=== PATIENT | female | born 2005 | race African-American/Black ===

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

== ENCOUNTER 2024-09-22 10:23 | Emergency (ER) | payer MEDICAID, SELFPAY ==
[2024-09-22 10:24] VITALS: BP 177/132; PULSE 76; RESP 16; TEMP 36.9; O2SAT 99; BMI 46.5
--- NOTE | 2024-09-22 10:40 | EX.ED.DYSGE1 ---
HPI History of Present Illness Chief Complaint: Cold Sx Detail of Chief Complaint: Cold symptoms Informant: patient Narrative Narrative: Patient presents the emergency department complaint of cold symptoms that started 7 days ago. She initially started with a sore throat and cough and headache and bodyaches. Was seen yesterday at urgent care and had testing for COVID flu and RSV which was negative. She had testing for strep which was negative. She continues to complain of some throat discomfort with swallowing. She is coughing up some thick phlegm at times. She had some intermittent blood-tinged sputum. She denies recent travel or surgery. No history of PE or DVT. Subjective fever at home but is not checked her temperature she does not have a thermometer. [facility] Medical History Depression Anxiety Home Medications ?Medication ?Instructions ?Recorded ?Last Taken ?Type methylphenidate HCl 54 mg 54 mg PO DAILY 02/27/21 Unknown History tablet,extended release 24 hr (Concerta) sertraline 25 mg tablet (Zoloft) 25 mg PO DAILY 02/22/22 12/23/23 History metformin 500 mg tablet 500 mg PO 12/23/23 Unknown History azithromycin 250 mg tablet 250 mg PO DAILY 4 days #4 tabs 09/22/24 Unknown Rx (Zithromax) Allergy/AdvReac Type Severity Reaction Status Date / Time No Known Allergies Allergy Verified 09/22/24 10:24 Family History Father Hypertension Diabetes Myocardial infarction Kidney disease Gout Sleep apnea CHF (congestive heart failure) Surgical History History of placement of ear tubes Social History Smoking Status: Never smoker ROS ROS ED Review of Systems ROS Unobtainable: other Constitutional Constitutional ED: Reports fever(s) and lethargy; Denies chills, sweats or weight loss Eyes Eyes: Denies blurry vision, change in vision or diplopia ENT ENT ED: Reports sore throat; Denies rhinorrhea Cardiovascular Cardiovascular: Denies chest pain, orthopnea or racing heartbeat Respiratory/Chest Respiratory/Chest: Reports cough, dyspnea on exertion, sputum and other Details: Hemoptysis ; Denies dyspnea or orthopnea Gastrointestinal Gastrointestinal: Denies abdominal pain, diarrhea, nausea or vomiting Genitourinary Genitourinary ED: Denies dysuria, hematuria or urinary frequency Musculoskeletal Musculoskeletal: Denies arthralgias, back pain, myalgias or neck pain Integumentary Denies abscess, Abrasions or rash Neurologic Neurologic: Denies headache(s) or weakness Psychiatric Psychiatric: Denies anxiety, depression or suicidal thoughts Endocrine Endocrinology: Denies polydipsia, polyphagia or polyuria Hematologic/Lymphatic Hematologic/Lymphatic: Denies easy bleeding, easy bruising or lymphadenopathy Allergic/Immunologic Allergic/Immunologic ED: Denies mouth swelling, tongue swelling or urticaria EXAM Physical Exam Const Vital Signs: 09/22/24 10:24 09/22/24 10:53 Temperature 98.4 F Temperature Source Oral Pulse Rate 76 Respiratory Rate 16 Respiratory Effort Normal Non-Labored Respiratory Pattern Normal Blood Pressure 177/132 H Blood Pressure Mean 147 Pulse Ox 99 Oxygen Delivery Method Room Air Positive well nourished and well developed General Appearance ED: well developed and NAD HEENT Reports TM's clear and moist mucous membranes HEENT Narrative: No significant pharyngeal erythema. No exudates. Uvula midline without trismus. No stridor on exam. No significant anterior or posterior lymphadenopathy. No significant tenderness over the trachea. No masses palpated. normocephalic and atraumatic; Negative for trauma or tenderness Tympanic Membrane ED: Yes TM's clear Eyes PERRL and EOMs intact bilaterally General Eye ED: Negative for pale conjunctiva or scleral icterus Neck no lymphadenopathy, supple and no JVD General: Negative for tenderness Chest Wall inspection of chest normal and palpation of chest normal Chest: Negative for tenderness Resp normal respiratory effort and clear to auscultation bilaterally Effort and Inspection: Negative for respiratory distress or pain with movement Auscultation: Negative for rhonchi, wheezes or diminished lung sounds Cardio regular rate, regular rhythm, S1 normal heart sound, S2 normal heart sound and no murmurs Peripheral Pulses: pulses 2+ throughout GI normal to inspection, nondistended, normoactive bowel sounds, soft to palpation, non-tender, non-distended and no masses Back/Spine no CVA tenderness and no thoracic nor lumbar tenderness Extremity normal to inspection General Extremety ED: Negative for edema General Extremity: Negative for edema Neuro oriented x3, CN's II-XII intact bilaterally, no sensory deficits noted and gait normal Sensorium / Orientation: awake, alert, oriented to person, oriented to place and oriented to time Motor Exam: strength 5/5 throughout and strength abnormal Psych mental status grossly normal Skin no rashes or lesions noted and no wounds MDM MDM MDM Narrative Medical decision making narrative: Patient presents with cough at times blood-tinged for about 6 days. Patient still bringing up thick yellow phlegm. Subjective fever at times. Negative viral studies for COVID flu and RSV yesterday as well as strep. Two-view chest x-ray obtained interpreted by myself no evidence of infiltrate or pneumothorax or acute disease process. Radiology in agreement. This point discussed results with patient. In the differential still would be viral etiology versus possible bacterial cause and given that she has had symptoms for almost over a week now and still bringing up thick phlegm at times blood-tinged will cover with Zithromax and give first dose in the emergency department. Advised to follow-up with her primary care physician within the next 5 to 7 days. Vies to return if increasing shortness of breath or condition should worsen anyway. Radiography Diagnostic Testing: Clinical Impression(s) from Imaging Studies Chest X-Ray 09/22/24 10:50 IMPRESSION: No acute process detected. Reading [facility] chest x-ray obtained interpreted by myself as no evidence of infiltrate or pneumothorax or acute disease process. Radiology in agreement. Discharge Plan Triage Chief Complaint: Cold Sx ED Provider: Abdoul Mulligan Dx/Rx/DC Orders Clinical Impression: Bronchitis Instructions: ED Upper Resp Infec Abx Tx Prescriptions: New azithromycin [Zithromax] 250 mg tablet 250 mg PO DAILY 4 Days Qty: 4 0RF No Action methylphenidate HCl [Concerta] 54 mg Tablet Extended Release 24hr 54 mg PO DAILY sertraline [Zoloft] 25 mg Tablet 25 mg PO DAILY metformin 500 mg tablet 500 mg PO Primary Care Provider: Fanny Alonzo Referrals: Isrrael Knight MD [Non-Staff] - Activity Restrictions/Additional Instructions: Follow-up with your primary care physician within expected 7 days Print Language: Urdu Disposition Disposition: Home, Self Care
--- NOTE | 2024-09-22 10:50 | RAD_ITS ---
PROCEDURE: CHEST PA AND LATERAL 09/22/2024 REASON FOR EXAM: COUGH TECHNIQUE: Frontal and lateral views of the chest. COMPARISON: Chest radiograph 02/22/2022 FINDINGS: Hardware: None Heart: Normal size Mediastinum: Normal contours Lungs: Clear and expanded Bones: Unremarkable RAD/Chest PA and Lateral IMPRESSION: No acute process detected. Reading [facility]
--- OUTSIDE RECORDS SUMMARY | 2024-09-22 11:16 | XMS RPT_ITS | CCD ---
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 reach by phone- [employer] message sent William Chowdary MA Allergies As of Date: 11/21/2023 Noted Allergy Reaction CAT DANDER 07/01/2021 7 - Swelling 9 - Itching Date Reviewed: 11/20/2023 Reviewed by: William Chowdary MA - Fully Assessed Reason for Visit: Results [95] Prescriptions as of 11/21/2023 - metFORMIN (GLUCOPHAGE) 500 mg tablet Take 1 tablet by mouth daily with breakfast. - sertraline (ZOLOFT) 100 mg tablet Take 1 tablet by mouth once daily. - SUMAtriptan (IMITREX) 100 mg tablet Take 100 mg by mouth as needed. Meds Comments as of 08/18/2010: All medications have been reviewed today. Linda Fuentes Bety Problem List As Of Date 11/21/2023 Noted Resolved Attention deficit hyperactivity disorder (ADHD)*03/24/2011 06/10/2019 Adjustment disorder with mixed anxiety and depr*09/25/2017 09/19/2022 Body mass index equal to or greater than 95th p*09/14/2018 Class 3 severe obesity with body mass index (BM*10/04/2022 Encounter Status:Closed by WILLIAM CHOWDARY CMA on 11/21/23 Normal [facility] C. trachomatis+N. gonorrhoea e DNA TARUN+probe Ql (Unsp spec)on 11-20-2023 C. trachomatis rRNA TARUN+probe Ql (Unsp spec) Negative Normal Negative for Chlamydia trachomatis by amplificaton [facility] Comment on above: Order Comment: Speci men Type: URINE SPECIMEN Ordering Facility: [facility] Address: [address] [place] [address] Performed By: #### 3 [id number] #### [facility] CLIA [id number] [address] [place] [address] [place] N. gonorrhoeae rRNA TARUN+probe Ql (Unsp spec) Negative Normal Negative for Neisseria gonorrhoeae by amplification [facility] Comment on above: Order Comment: Speci men Type: URINE SPECIMEN Ordering Facility: [facility] Address: [address] [place] [address] Performed By: #### 3 [id number] #### [facility] CLIA [id number] [address] [place] [address] [place] CNOVon 11-20-2023 CNOV Office Visit (FAMPWS ) TARI URIBE ([id number]) 3 F Date Time Provider Department 11/20/23 12:00 PM JOSE ALONZO During your visit today, we recorded the following information about you: Pulse Respiration Blood pressure Weight 57/minute 14/minute 125/70 161 kg Jose Alonzo APRN.CNP 11/20/2023 12:08 PM Signed Chief Complaint Patient presents with: Follow Up HPI Tari Uribe is a 18 year old female who presents here today for Above Complaints.. Patient presents for letter for an emotional support animal. Past medical history, appointments, medications, allergies reviewed. Previous Medical History PAST MEDICAL HISTORY No date: ADHD (attention deficit hyperactivity disorder) Comment: [facility]--Dr. Oakley 09/25/2017: Adjustment disorder with mixed anxiety and depressed mood No date: Arm fracture, left Comment: kindergarten No date: Depression Comment: and anxiety No date: PMH - PAST MEDICAL HISTORY OF Comment: recurrent ear infections Previous Surgical History PAST SURGICAL HISTORY 04/03/2006: TYMPANOSTOMY LOCAL/TOPICAL ANESTHESIA Comment: dr calvert Family History FAMILY HISTORY Problem Relation Age of Onset Heart Mother murmur Cancer Mother had cancerous polyp at age 10 year Diabetes Maternal Grandmother Heart Maternal Grandmother other (kidney) Maternal Grandmother had one removed Heart Father CHF, Stents x 2 Kidney Disease Father Diabetes Father type 2 Hypertension Father Hyperlipidemia Father other (gout) Father No Known Problems Brother No Known Problems Paternal Grandmother Dementia Paternal Grandfather Alzheimer's Disease Paternal Grandfather Patient Allergies ALLERGIES Allergen Reactions Cat Dander Swelling, Itching Current Medications Current Outpatient Medications on File Prior to Visit Medication Sig dexAMETHasone (DECADRON) 1 mg tablet Take the tablet at 11 pm and go for labs the next morning on fasting- labs to be drawn at 8 am sertraline (ZOLOFT) 100 mg tablet Take 1 tablet by mouth once daily. metFORMIN (GLUCOPHAGE) 500 mg tablet Take 1 tablet by mouth daily with breakfast. SUMAtriptan (IMITREX) 100 mg tablet Take 100 mg by mouth as needed. No current facility-administered medications on file prior to visit. Social History Social History Tobacco Use Smoking status: Never Smokeless tobacco: Never Vaping Use Vaping Use: Never used Substance Use Topics Alcohol use: No Drug use: Yes Types: Marijuana Comment: every other day, smokes and uses edibles Review of Symptoms REVIEW OF SYSTEMS SEE HPI EXAM: BP 125/70 Pulse (!) 57 Resp 14 Wt (!) 161 kg (355 lb) LMP 05/22/2023 (Exact Date) BMI 52.42 kg/m? General Appearance: Well appearing, alert, in no acute distress, well-hydrated, well nourished.. Health Maintenance List GC (Gonorrhea) Screening (18-24) Never done Depression Screening Never done Anxiety Screening Never done Hepatitis C Screening Never done HIV Screening Never done Chlamydia Screening (18-) Never done Covid-19 Vaccine(1 - season) due on 04/12/2024 Influenza Vaccine(1) due on 12/17/2023 DTaP,Tdap,Td Vaccine(7 - Td or Tdap) due on 12/07/2025 Hepatitis B Vaccine Completed HPV Vaccine Completed Meningococcal Conjugate Vaccine Completed Meningococcal B Vaccine: Consider Based On Risk Completed ASSESSMENT/PLAN: 1. Prediabetes - ICD9: 790.29, ICD10: R73.03 - METFORMIN 500 MG TABLET 2. ALIZA (generalized anxiety disorder) - ICD9: 300.02, ICD10: F41.1 - SERTRALINE 100 MG TABLET 3. Screening for STD (sexually transmitted disease) - ICD9: V74.5, ICD10: Z11.3 - GONORRHEA/CHLAMYDIA NAAT Jose Alonzo APRN.[employer] Allergies As of Date: 11/20/2023 Noted Allergy Reaction CAT DANDER 07/01/2021 7 - Swelling 9 - Itching Date Reviewed: 11/20/2023 Reviewed by: William Chowdary MA - Fully Assessed Reason for Visit: Follow Up [171] Visit Diagnoses:Prediabetes [R73.03] ALIZA (generalized anxiety disorder) [F41.1] Screening for STD (sexually transmitted disease) [Z11.3] Order(s):metFORMIN (GLUCOPHAGE) 500 mg tabletTake 1 tablet by mouth daily with breakfast.Disp: 90 tabletRfl: 0 sertraline (ZOLOFT) 100 mg tabletTake 1 tablet by mouth once daily.Disp: 90 tabletRfl: 0 GONORRHEA/CHLAMYDIA NAAT [SQGCCT] Order #: [id number] FUTURE GONORRHEA/CHLAMYDIA NAAT [SQGCCT] Order #: [id number]. #:[id number] Prescriptions as of 11/20/2023 - metFORMIN (GLUCOPHAGE) 500 mg tablet Take 1 tablet by mouth daily with breakfast. - sertraline (ZOLOFT) 100 mg tablet Take 1 tablet by mouth once daily. - SUMAtriptan (IMITREX) 100 mg tablet Take 100 mg by mouth as needed. Meds Comments as of 08/18/2010: All medications have been reviewed today. Linda Fuentes [facility] Problem List As Of Date 11/20/2023 Noted Resolved Attention deficit hyperactivity disorder ( (more content not included)... [facility]2022 Cult,Urine Specimen Description .CLEAN CATCH URINE .VOIDED URINE Culture Mixed david isolated. Further workup and sensitivity testing not routinely indicated and will not be perfomed. Mixed david isolated includes: MIXED GRAM POSITIVE ORGANISMS 10 to 50,000 CFU/ML MIXED GRAM NEGATIVE RODS <10,000 CFU/ML Report Status FINAL 12/25/2022 Normal [facility] Comment on above: Performed By: #### U RC #### [place] [address] Log Rider: Sean Morley MD CBC with Diffon 12-24-2022 Abs. Basophil 0.04 k/uL Normal 0.00-0.20 [facility] Comment on above: Performed By: #### C BCWD, CP, LIP, LACTIC #### [address] [address] Log Rider: Sean Morley MD Abs.Imm.Granulocyte <0.03 Normal 0.00-0.58 [facility] Comment on above: Performed By: #### C BCWD, CP, LIP, LACTIC #### [place] [address] Log Rider: Sean Morley MD Abs.Neutrophil (Seg) 3.31 k/uL Normal 1.80-7.30 [facility] Comment on above: Performed By: #### C BCWD, CP, LIP, LACTIC #### [address] [place] [address] Log Rider: Sean Morley MD Basophils/100 WBC (Bld) 1 % Normal 0.0-2.0 [facility] Comment on above: Performed By: #### C BCWD, CP, LIP, LACTIC #### [address] [address] Log Rider: Sean Morley MD Eosinophils (Bld) [#/Vol] 0.04 10*3/uL Low 0.05-0.50 [facility] Comment on above: Performed By: #### C BCWD, CP, LIP, LACTIC #### [address] [place] [address] Log Rider: Sean Morley MD Eosinophils/100 WBC (Bld) 1 % Normal 0-6 [facility] Comment on above: Performed By: #### C BCWD, CP, LIP, LACTIC #### [address] [place] [address] Log Rider: Sean Morley MD Erythrocyte distribution width (RBC) [Ratio] 12.3 % Normal 11.5-15.0 [facility] Comment on above: Performed By: #### C BCWD, CP, LIP, LACTIC #### [address] [place] [address] Log Rider: Sean Morley MD Hematocrit (Bld) [Volume fraction] 41.7 % Normal 34.0-48.0 [facility] Comment on above: Performed By: #### C BCWD, CP, LIP, LACTIC #### [address] [place] [address] Log Rider: Sean Morley MD Hemoglobin (Bld) [Mass/Vol] 13.4 g/dL Normal 11.5-15.5 [facility] Comment on above: Performed By: #### C BCWD, CP, LIP, LACTIC #### [address] [place] [address] Log Rider: Sean Morley MD Immature granulocytes/100 WBC (Bld) 0 % Normal 0.0-5.0 [facility] Comment on above: Performed By: #### C BCWD, CP, LIP, LACTIC #### [address] [place] [address] Log Rider: Sean Morley MD Lymphocytes (Bld) [#/Vol] 2.89 10*3/uL Normal 1.50-4.00 [facility] Comment on above: Performed By: #### C BCWD, CP, LIP, LACTIC #### [address] [place] [address] Log Rider: Sean Morley MD Lymphocytes/100 WBC (Bld) 43 % High 20.0-42.0 [facility] Comment on above: Performed By: #### C BCWD, CP, LIP, LACTIC #### [address] [place] [address] Log Rider: Sean Morley MD MCH (RBC) [Entitic mass] 28.2 pg Normal 26.0-35.0 [facility] Comment on above: Performed By: #### C BCWD, CP, LIP, LACTIC #### [address] [place] [address] Log Rider: Sean Morley MD MCHC (RBC) [Mass/Vol] 32.1 g/dL Normal 32.0-34.5 [facility] Comment on above: Performed By: #### C BCWD, CP, LIP, LACTIC #### [address] [place] [address] Log Rider: Sean Morley MD MCV (RBC) [Entitic vol] 87.6 fL Normal 80.0-99.9 [facility] Comment on above: Performed By: #### C BCWD, CP, LIP, LACTIC #### [address] [place] [address] Log Rider: Sean Morley MD Monocytes (Bld) [#/Vol] 0.51 10*3/uL Normal 0.10-0.95 [facility] Comment on above: Performed By: #### C BCWD, CP, LIP, LACTIC #### [address] [place] [address] Log Rider: Sean Morley MD Monocytes/100 WBC (Bld) 8 % Normal 2.0-12.0 [facility] Comment on above: Performed By: #### C BCWD, CP, LIP, LACTIC #### [address] [place] [address] Log Rider: Sean Morley MD Neutrophil (Seg) 49 % Normal 43.0-80.0 [facility] Comment on above: Performed By: #### C BCWD, CP, LIP, LACTIC #### [address] [place] [address] Log Rider: Sean Morley MD Platelet mean volume (Bld) [Entitic vol] 9.9 fL Normal 7.0-12.0 [facility] Comment on above: Performed By: #### C BCWD, CP, LIP, LACTIC #### [address] [place] [address] Log Rider: Sean Morley MD Platelets (Bld) [#/Vol] 440 10*3/uL Normal 130-450 [facility] Comment on above: Performed By: #### C BCWD, CP, LIP, LACTIC #### [facility] [address] [place] [address] Log Rider: Sean Morley MD RBC (Bld) [#/Vol] 4.76 10*6/uL Normal 3.50-5.50 [facility] Comment on above: Performed By: #### C BCWD, CP, LIP, LACTIC #### [facility] [address] [place] [address] Log Rider: Sean Morley MD WBC (Bld) [#/Vol] 6.8 10*3/uL Normal 4.5-11.5 [facility] Comment on above: Performed By: #### C BCWD, CP, LIP, LACTIC #### [address] [place] [address] Log Rider: Sean Morley MD CT ABDOMEN PELVIS WO CONTRAS Ton 12-24-2022 CT ABDOMEN PELVIS WO CONTRAST EXAM: CT Abdomen and Pelvis Without Intravenous Contrast EXAM DATE/TIME: 12/24/2022 3:03 pm CLINICAL HISTORY: ORDERING SYSTEM PROVIDED HISTORY: left flank pain TECHNOLOGIST PROVIDED HISTORY: Reason for exam:->left flank pain Additional Contrast?->None Decision Support Exception - unselect if not a suspected or confirmed emergency medical condition->Emergency Medical Condition (MA) What reading provider will be dictating this exam?->CRC TECHNIQUE: Axial computed tomography images of the abdomen and pelvis without intravenous contrast. This CT exam was performed using one or more of the following dose reduction techniques: automated exposure control, adjustment of the mA and/or kV according to patient size, and/or use of iterative reconstruction technique. COMPARISON: No relevant prior studies available. FINDINGS: Lung bases: No acute findings. No mass. No consolidation. ABDOMEN: Liver: No acute findings. Gallbladder and bile ducts: No acute findings. No calcified stones. No ductal dilation. Pancreas: No acute findings. No ductal dilation. Spleen: No acute findings. No splenomegaly. Adrenals: No acute findings. No mass. Kidneys and ureters: No acute findings. No obstructing stones. No hydronephrosis. Stomach and bowel: No acute findings. No obstruction. No mucosal thickening. PELVIS: Appendix: A normal appearing appendix is noted. Bladder: No acute findings. No stones. Reproductive: Unremarkable as visualized. ABDOMEN and PELVIS: Intraperitoneal space: No acute findings. No free air. No significant fluid collection. Bones/joints: No acute fracture. No dislocation. Soft tissues: No acute findings. Vasculature: No acute findings. No abdominal aortic aneurysm. Lymph nodes: No acute findings. No enlarged lymph nodes. IMPRESSION: 1. No evidence of urinary tract calculi or any evidence of obstructive uropathy. 2. Otherwise no acute pathology or definite etiology for the patient's symptoms. Interpreted by: Manfred Rowland MD Signed by: Manfred Rowland MD 12/24/22 Final result Normal [facility] Comment on above: Order Comment: Reaso n for exam:->left flank pain Additional Contrast?->None Decision Support Exception - unselect if not a suspected or confirmed emergency medical condition->Emergency Medical Condition (MA) What reading provider will be dictating this exam?->CRC Comp Metabolic Profon 2022 Albumin [Mass/Vol] 4.5 g/dL Normal 3.5-5.2 [facility] Comment on above: Performed By: #### C BCWD, CP, LIP, LACTIC #### [facility] [address] [place] [address] Log Rider: Sean Morley MD Alkaline Phos 95 U/L Normal 35-104 [facility] Comment on above: Performed By: #### C BCWD, CP, LIP, LACTIC #### [facility] [address] [place] [address] Log Rider: Sean Morley MD ALT [Catalytic activity/Vol] 22 U/L Normal 0-32 [facility] Comment on above: Performed By: #### C BCWD, CP, LIP, LACTIC #### [facility] [address] [place] [address] Log Rider: Sean Morley MD Anion gap [Moles/Vol] 13 mmol/L Normal 7-16 [facility] Comment on above: Performed By: #### C BCWD, CP, LIP, LACTIC #### [address] [place] [address] Log Rider: Sean Morley MD AST [Catalytic activity/Vol] 18 U/L Normal 0-31 [facility] Comment on above: Performed By: #### C BCWD, CP, LIP, LACTIC #### [address] [place] [address] Log Rider: Sean Morley MD Bilirubin [Mass/Vol] 0.3 mg/dL Normal 0.0-1.2 [facility] Comment on above: Performed By: #### C BCWD, CP, LIP, LACTIC #### [address] [place] [address] Log Rider: Sean Morley MD Calcium [Mass/Vol] 9.5 mg/dL Normal 8.6-10.2 [facility] Comment on above: Performed By: #### C BCWD, CP, LIP, LACTIC #### [address] [place] [address] Log Rider: Sean Morley MD Chloride [Moles/Vol] 103 mmol/L Normal 98-107 [facility] Comment on above: Performed By: #### C BCWD, CP, LIP, LACTIC #### [address] [place] [address] Log Rider: Sean Morley MD CO2 [Moles/Vol] 26 mmol/L Normal 22-29 [facility] Comment on above: Performed By: #### C BCWD, CP, LIP, LACTIC #### [place] [address] [place] [address] Log Rider: Sean Morley MD Creatinine [Mass/Vol] 0.8 mg/dL Normal 0.40-1.20 [facility] Comment on above: Performed By: #### C BCWD, CP, LIP, LACTIC #### [address] [place] [address] Log Rider: Sean Morley MD GFR/1.73 sq M.predicted among non-blacks MDRD (S/P/Bld) [Vol rate/Area] mL/min/{1.73_m2} Normal >60 [facility] Comment on above: Result Comment: These results are not intended for use in patients <18 years of age. eGFR results are calculated without a race factor using the 2020 CKD-EPI equation. Careful clinical correlation is recommended, particularly when comparing to results calculated using previous equations. The CKD-EPI equation is less accurate in patients with extremes of muscle mass, extra-renal metabolism of creatine, excessive creatine ingestion, or following therapy that affects renal tubular secretion. Performed By: #### C BCWD, CP, LIP, LACTIC #### [address] [address] Log Rider: Sean Morley MD Glucose [Mass/Vol] 88 mg/dL Normal 55-110 [facility] Comment on above: Performed By: #### C BCWD, CP, LIP, LACTIC #### [address] [place] [address] Log Rider: Sean Morley MD Potassium [Moles/Vol] 4.4 mmol/L Normal 3.5-5.0 [facility] Comment on above: Performed By: #### C BCWD, CP, LIP, LACTIC #### [address] [place] [address] Log Rider: Sean Morley MD Protein [Mass/Vol] 8.1 g/dL Normal 6.4-8.3 [facility] Comment on above: Performed By: #### C BCWD, CP, LIP, LACTIC #### [address] [place] [address] Log Rider: Sean Morley MD Sodium [Moles/Vol] 142 mmol/L Normal 132-146 [facility] Comment on above: Performed By: #### C BCWD, CP, LIP, LACTIC #### [address] [place] [address] Log Rider: Sean Morley MD Urea nitrogen [Mass/Vol] 8 mg/dL Normal 6-20 [facility] Comment on above: Performed By: #### C BCWD, CP, LIP, LACTIC #### [address] [place] [address] Log Rider: Sean Morley MD Lactic Acidon 12-24-2022 Lactate [Moles/Vol] 1.0 mmol/L Normal 0.5-2.2 [facility] Comment on above: Performed By: #### C BCWD, CP, LIP, LACTIC #### [address] [place] [address] Log Rider: Sean Morley MD Lipaseon 12-24-2022 Lipase [Catalytic activity/Vol] 25 U/L Normal 13-60 [facility] Comment on above: Performed By: #### C BCWD, CP, LIP, LACTIC #### [address] [place] [address] Log Rider: Sean Morley MD Urinalysis w/ Microon 2022 Urine RBC's 21 TO 50 Abnormal R02 [facility] Comment on above: Performed By: #### U AMIC #### [address] [place] [address] Log Rider: Sean Morley MD Urine WBC's 10 TO 20 Abnormal R05 [facility] Comment on above: Performed By: #### U AMIC #### [address] [address] Log Rider: Sean Morley MD Bilirubin, SemiQt,Ur Negative Normal NEG [facility] Comment on above: Performed By: #### U AMIC #### [address] [address] Log Rider: Sean Morley MD Blood, Urine MODERATE Abnormal NEG [facility] Comment on above: Performed By: #### U AMIC #### [place] [address] Log Rider: Sean Morley MD Clarity (U) Clear Normal CLEAR [facility] Comment on above: Performed By: #### U AMIC #### [address] [address] Log Rider: Sean Morley MD Color (U) Yellow Normal YEL [facility] Comment on above: Performed By: #### U AMIC #### [address] [place] [address] Log Rider: Sean Morley MD Glucose Ql (U) Negative Normal NEG [facility] Comment on above: Performed By: #### U AMIC #### [address] [address] Log Rider: Sean Morley MD Ketones Ql (U) Negative Normal NEG [facility] Comment on above: Performed By: #### U AMIC #### [place] [address] [address] Log Rider: Sean Morley MD Leukocyte esterase Test strip Ql (U) Negative Normal NEG [facility] Comment on above: Performed By: #### U AMIC #### [address] [address] Log Rider: Sean Morley MD Nitrite,Ur Negative Normal NEG [facility] Comment on above: Performed By: #### U AMIC #### [address] [address] Log Rider: Sean Morley MD PH,Ur 6.5 Normal 5.0-9.0 [facility] Comment on above: Performed By: #### U AMIC #### [place] [address] Log Rider: Sean Morley MD Protein Ql (U) Negative Normal NEG [facility] Comment on above: Performed By: #### U AMIC #### [address] [address] Log Rider: Sean Morley MD Spec. [place],Ur 1.020 Normal 1.005-1.030 [facility] Comment on above: Performed By: #### U AMIC #### [place] [address] Log Rider: Sean Morley MD Urobilinogen,Ur 0.2 EU/dL Normal 0.0-1.0 [facility] Comment on above: Performed By: #### U AMIC #### [address] [address] Log Rider: Sean Morley MD C Peptideon 05-06-2022 C Peptide 5.6 ng/mL High 1.1 - 4.4 [facility] Comment on above: Order Comment: Relea se to patient->Automatic [id number]&Blood Result Comment: Test Performed by: [facility] [address] [place] [address] Log Rider: Baldev Serna M.D. Ph.D.; CLIA# [id number] Performed By: #### T SHR #### [address] [id number] Insulinon 05-05-2022 Insulin 37 uIU/mL High 0-22 [facility] Comment on above: Order Comment: Fasti ng specimen Release to patient->Automatic [id number]&Blood Result Comment: Post 4-12 hour Fast: 0-8 years: 0-17 uIU/mL >8 years: 0- 22 uIU/mL 2-hour Post Meal: 10-33 uIU/mL 2-hour Post Glucose Testin-66 uIU/mL Performed By: #### I NSUL #### [address] [address] Insulin 37 High [facility] Comment on above: Post 4-12 hour Fast: 0-8 years: 0-17 uIU/mL >8 years: 0- 22 uIU/mL 2-hour Post Meal: 10-33 uIU/mL 2-hour Post Glucose Testin-66 uIU/mL Lipid Panelon 05-05-2022 Cholesterol in LDL [Mass/Vol] 98 mg/dL Normal 0-109 [facility] Comment on above: Order Comment: Relea se to patient->Automatic [id number]&Blood Performed By: #### T SHR #### [address] [id number] Non-HDL Cholesterol 116 mg/dL Normal 0-119 [facility] Comment on above: Order Comment: Relea se to patient->Automatic [id number]&Blood Performed By: #### T SHR #### [address] [id number] Cholesterol [Mass/Vol] 153 mg/dL Normal 0-169 [facility] Comment on above: Order Comment: Relea se to patient->Automatic 97192&Blood Result Comment: Acce ptable (mg/dL): <170 Borderline-High (mg/dL): 170-199 High (mg/dL): > or = 200 Reference: Recommendations of the [place] [employer] Pediatric[employer] (Pediatrics, Mar 2011, 128 (Supplement 5) M503-Z432; DOI: 10.1542/peds.2008-2107C). Performed By: #### T SHR #### [address] [address] Cholesterol in HDL [Mass/Vol] 37 mg/dL Normal [facility] Comment on above: Order Comment: Relea se to patient->Automatic 71430&Blood Result Comment: Low (mg/dL): <40 Borderline-Low (mg/dL): 40-45 Acceptable (mg/dL): >45 Performed By: #### T SHR #### [address] [address] Triglyceride [Mass/Vol] 92 mg/dL High 0-89 [facility] Comment on above: Order Comment: Relea se to patient->Automatic 60567&Blood Performed By: #### T SHR #### [address] [address] Cholesterol [Mass/Vol] 153 mg/dL 0 - 169 mg/dL [facility] Comment on above: Acceptable (mg/dL): <170 Borderline-High (mg/dL): 170-199 High (mg/dL): > or = 200 Reference: Recommendations of the [employer] [place] [employer] (Pediatrics, Mar 2011, 128 (Supplement 5) [id number]; DOI: 10.1542/peds.2009-2107C). Cholesterol in HDL [Mass/Vol] 37 mg/dL [facility] Comment on above: Low (mg/dL): <40 Borderline-Low (mg/dL): 40-45 Acceptable (mg/dL): >45 Cholesterol in LDL [Mass/Vol] 98 mg/dL 0 - 109 mg/dL [facility] Non-HDL Cholesterol 116 mg/dL 0 - 119 mg/dL [facility] Triglyceride [Mass/Vol] 92 mg/dL High 0 - 89 mg/dL [facility] No Panel Informationon 05-05 Interpretation and review of laboratory results Abnormal [facility] Fasting specimen Release to patient->Automatic ACH LAB [facility] Progress Noteon 05-05-2022 Employment Program Representative Authentication Interface Message Text Tari Uribe is 17 y.o. female with obesity, anxiety, depression and polyarthralgia with myalgias, who is being seen in consultation at the [facility] Endocrine clinic for evaluation and advice regarding ELEVATED HEMOGLOBIN A1C. This visit was done at the request of Dr. Holly Tolbert (Rheumatology). Her PCP is Dr. Isrrael Woodall. Tari attended the visit today with her mother, who provided history. HPI: She was evaluated at the Rheumatology clinic on 03/17/2022 for migrating polyarthralgia and myalgia. Labs from 03/17/2022 drawn at 10:50 AM showed mildly elevated HbA1c of 6.0%, prompting referral to endocrinology. Blood glucose (80 mg/dL) and TSH (2.54 mIU/L) were normal. -- Rheumatologic evaluation revealed loose knee caps but did not lead to a specific diagnosis. She was recommended to undergo PT, she has to take ibuprofen very frequently. She was in the ED in February 2022 for severe joint pains. She also had boils around her breasts, seen by ID on 03/24/2022, found to have Staph infection, prescribed topical antibiotics which cleared. Father has obesity, diabetes (with poor BG control on 3 different insulins), kidney disease, CHF, CAD (3 stents), gout, fatty liver and HTN. Mother is fearful that Tari may be headed in her father's direction. GROWTH CHART REVIEW: Review of the growth chart shows steep weight gain starting at age 5 years, rising above the 99th percentile by 10 years. Between March 2021 and March 2022, weight increased from 336 to 348 lb. She has always been tall, with height tracking at the 97th percentile. BMI has been above the 99th percentile since age 10 years. PUBERTAL DEVELOPMENT: She had breast development at age 7 years, menarche at 9 years. Menstrual periods are regular, occurs monthly, bleeding lasts 5-7 days, LMP was 3 weeks ago. She is not bothered by acne or hirsutism. DIET: Eating in nurse's room at school. Review by our copier repair technician showed that she consumes large meal portions with carb heavy food choices at all meals and multiple snacks. Mother is interested in following up with our copier repair technician on a monthly basis. PHYSICAL ACTIVITIES: Not in organized sports, but very active in [employer] club, [employer] club, where she is constantly on her feet. PAST MEDICAL HISTORY: History: Tari was born at [place], [place] at term gestation via vaginal delivery. history was uncomplicated (no gestational diabetes or hypertension). Birthweight was 8 lb 4 oz. She had mild jaundice, there was no hypoglycemia or feeding difficulties during the period. Medical Problems: -- Low vitamin D, prescribed vitamin D -- Anxiety, depression Patient Active Problem List Diagnosis Attention deficit disorder with hyperactivity(314.01) Elevated hemoglobin A1c BMI (body mass index), pediatric, > 99% for age Hospitalizations: none Surgeries: none DEVELOPMENTAL HISTORY: Motor, social and speech developmental milestones were all on time. CURRENT MEDICATIONS: -- Vitamin D - 50,000 units once a week for 12 weeks -- Also takes Zoloft and Concerta Outpatient Medications Marked as Taking for the 05/05/22 encounter (Office Visit) with Tee Warner MD Medication Sig Dispense Refill Magnesium Oxide 500 MG TABS Take 1 Tablet (500 mg) by mouth daily sertraline (ZOLOFT) 50 MG tablet Take 1 Tablet (50 mg) by mouth daily methylphenidate 36 MG CR tablet Take 2 Tabs (72 mg) by mouth daily Indications: Attention Deficit Hyperactivity Disorder Earliest Fill Date: 02/15/16 60 Tab 0 ALLERGIES: Patient has no known allergies. REVIEW OF SYSTEMS: Pertinent items are noted in HPI. CONSTITUTIONAL: has low to fair energy SLEEP: gets 6 hours of sleep nightly. No moderate snoring, no observed apnea. EYES: does not use eye glasses, no recent change in vision ENT: normal hearing CARDIOVASCULAR: no exertional chest pain, palpitations RESPIRATORY: no difficulty breathing, wheezing or cough IMMUNOLOGY: Staph skin infection GI: has IBS, has regular bowel movements, mild abdominal pain, no diarrhea, or constipation NEURO: no frequent headaches, never had seizures SKIN: no rash, dry skin, acne, dry/brittle hair or scalp hair loss MUSCULOSKELETAL: as noted in HPI ENDOCRINOLOGIC: no polyuria, nocturia, nocturnal enuresis or excessive thirst PSYCH: has anxiety and depression SOCIAL HISTORY: Tari lives with parents, 7 yo brother and 6 yo sister She is a senior at [employer]. She is active in theater and drama club. FAMILY HISTORY: Mother: height 5'5, weight 264 lb Father: height 6'3, weight 370 lb. Father has obesity, diabetes (with poor BG control on 3 different insulins, HbA1c 10-14%), kidney disease, CHF, CAD (3 stents), gout, fatty liver and HTN. Mother - HTN 6 yo sister has ADHD No family hx of thyroid disease or dyslipidemia PHYSICAL EXAMINATION: Blood pressure 122/70, pulse 72, height 177.2 cm, weight (!) 160 kg. >99 % (more content not included)... Normal [facility] Progress Noteon 03-24-2022 Employment Program Representative Authentication Interface Message Text Tari Uribe is here for new office visit for: New Patient Visit (Holes under breast and and then boils on top, onset from this summer, topicals and orals antibiotics, not helping and not going away, some are healing but scarring, both breasts and continues to be spreading. 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 We were able to discuss staph decolonization today. In addition I talked to her the importance of daily shower, keeping nails short, not sharing items of personal hygiene etc She will try these steps for 3 months and we will meet virtually at the time. No indication for surgical intervention at this time Plan Staph decolonization instructions Script for Clindamycin for a short course of 5 days if prevention fails Follow up in 3 months. History of Present Illness The history is provided by the patient and a parent. Tari is a 16 year old who comes for new patient evaluation. According to her her problems started in November Boil on top of the breast It was like a scab Then she had underneath the left breast, rash around it, hurt a lot Culture obtained and grew actinomyces On medications for it, initially doxycycline which she did not tolerate well and then clindamycin. One more appeared on the other breast with headaches, blurred vision and leg pain She is not having any more headaches Leg pain is gone Blurred vision is better Usually one spot Smaller than a lizeth Some times it leaks No surgery so far Some under arm pits, inner thighs She had the shakes a couple of week ago, not sure if she had documented fevers. 12th grade Journal club and [employer] Works with Dad at [employer] Up to date with shot including Flu No allergies Review of Systems Infectious Disease Review of Systems Recent Lab Results Reviewed culture results from care everywhere Recent Imaging Findings US Duplex Lower Extremity Bilat Vein Result Date: 03/02/2022 CLINICAL HISTORY: migartory b/l leg pain TECHNIQUE: Ultrasound was performed of the deep venous system of both lower extremities using grayscale, color Doppler and spectral Doppler with and without compression. COMPARISON: None. FINDINGS: RIGHT LOWER EXTREMITY Venous catheter: None. Unless otherwise specified, each imaged vessel has a normal perdomo-scale appearance with normal color Doppler flow and normal venous waveforms. In addition, unless otherwise specified, each vessel is easily compressible with normal response to augmentation maneuvers. There are no abnormal collateral vessels. PROXIMAL DEEP VEINS External iliac vein: Patent. Common femoral vein: Patent. Femoral vein: Patent. DISTAL DEEP VEINS Popliteal vein: Patent. Peroneal vein: Patent. Posterior tibial veins: Patent. Gastrocnemius veins: Patent. SUPERFICIAL VEINS Origin of the greater saphenous vein: Patent. OTHER FINDINGS: None. LEFT LOWER EXTREMITY Venous catheter: None. Unless otherwise specified, each imaged vessel has a normal perdomo-scale appearance with normal color Doppler flow and normal venous waveforms. In addition, unless otherwise specified, each vessel is easily compressible with normal response to augmentation maneuvers. There are no abnormal collateral vessels. PROXIMAL DEEP VEINS External iliac vein: Patent. Common femoral vein: Patent. Femoral vein: Patent. DISTAL DEEP VEINS Popliteal vein: Patent. Peroneal vein: Patent. Posterior tibial veins: Patent. Gastrocnemius veins: Patent. SUPERFICIAL VEINS Origin of the greater saphenous vein: Patent. OTHER FINDINGS: None. IMPRESSION: No evidence of deep venous thrombosis in both lower extremities. This report has been created using voice recognition software X-Ray Tib-Fib 2 Views Right Result Date: 03/02/2022 PROCEDURE: TIBIA FIBULA 2 VIEWS RIGHT CLINICAL HISTORY: msk leg pain COMPARISON: None. FINDINGS: There is no visible fracture. 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 IMPRESSION: Normal radiographic examination of the tibia and fibula. This report has been created using voice recognition software X-Ray Tib-Fib 2 Views Left Result Date: 03/02/2022 PROCEDURE: TIBIA FIBULA 2 VIEWS LEFT CLINICAL HISTORY: msk leg pain COMPARISON: None. FINDINGS: There is no visible fracture or other osseous abnormality. The soft tissues are radiographically normal. IMPRESSION: Normal radiographic examination of the tibia and fibula. This report has been created using voice recognition software Physical Examination Vitals: BP 134/73 Pulse 104 Temp 36.7 C (98.1 F) (Temporal) Resp 20 Ht 177.2 cm Wt (!) 158 kg LMP 02/28/2022 BMI 50.34 kg/m Physical Exam General: Patient appears healthy, well developed, well nourished Head: atraumat (more content not included)... Normal [facility] Aldolaseon 03-18-2022 Aldolase 6.0 U/L Normal 1.0-6.0 [facility] Comment on above: Order Comment: Rhona cole to patient->Automatic 85180&Blood Performed By: #### L D #### [address] [address] Complement, Totalon 03-18-20 22 Complement, Total 66 U/mL Normal 30-75 [facility] Comment on above: Order Comment: Whita se to patient->Automatic 28665&Blood Result Comment: Test Performed by: [facility] [address] [place] [address] Log Rider: Baldev Serna M.D. Ph.D.; CLIA# [id number] Performed By: #### L D #### [address] [address] Lyme Disease Serologyon Lyme Disease Serology Negative Normal Negative [facility] Comment on above: Order Comment: Relea se to patient->Automatic 86003&Blood Result Comment: No e vidence of antibodies to B. burgdorferi detected. False negative results may occur in recently infected patients (<=2 weeks) due to low or undetectable antibody levels to B. burgdorferi. If recent exposure is suspected, a second sample should be collected and tested in 2-4 weeks. Test Performed by: [facility] [address] [id number] Log Rider: Baldev Serna M.D. Ph.D.; CLIA# [id number] Performed By: #### L YMSR #### [address] [address] C-Reactive Proteinon 022 C-Reactive Protein 0.8 mg/dL Normal 0.0-1.0 [facility] Comment on above: Order Comment: Relea se to patient->Automatic 58618&Blood Result Comment: CRP determinations in neonates should be interpreted with caution. CRP may be elevated in circumstances not associated with inflammation (e.g. difficult delivery, pneumothorax). In premature neonates CRP levels may not rise to abnormal levels even if sepsis is present; some speculate that immature liver function decreases the ability to generate a CRP response. Performed By: #### C RP #### [address] [address] C3, Complementon 03-17-2022 C3, Complement 208 mg/dL High 77-143 [facility] Comment on above: Order Comment: Relea se to patient->Automatic 43566&Blood Performed By: #### C 3 #### [address] [address] C4, Complementon 03-17-2022 C4, Complement 37 mg/dL Normal 7-40 [facility] Comment on above: Order Comment: Relea se to patient->Automatic 78949&Blood Performed By: #### T SHR #### [address] [address] Comp Metabolic Panelon 03-17 Albumin [Mass/Vol] 4.3 g/dL Normal 3.2-4.5 [facility] Comment on above: Order Comment: Relea se to patient->Automatic 05164&Blood Performed By: #### L D #### [address] [address] [place] [address] ALP [Catalytic activity/Vol] 72 U/L Normal 43-83 [facility] Comment on above: Order Comment: Relea se to patient->Automatic 09816&Blood Performed By: #### L D #### [address] [address] [place] [address] Bili,Total 0.3 mg/dL Normal 0.0-1.0 [facility] Comment on above: Order Comment: Relea se to patient->Automatic 89880&Blood Performed By: #### L D #### [address] [address] [place] [address] Calcium [Mass/Vol] 9.6 mg/dL Normal 7.6-11.0 [facility] Comment on above: Order Comment: Relea se to patient->Automatic 93775&Blood Performed By: #### L D #### [address] [address] [place] [address] CO2 [Moles/Vol] 25.3 mmol/L Normal 22.0-29.0 [facility] Comment on above: Order Comment: Relea se to patient->Automatic 20040&Blood Performed By: #### L D #### [address] [address] [place] [address] Creatinine [Mass/Vol] 0.71 mg/dL Normal 0.50-1.00 [facility] Comment on above: Order Comment: Relea se to patient->Automatic 32589&Blood Performed By: #### L D #### [address] [address] [place] [address] Glucose [Mass/Vol] 80 mg/dL Normal 70-99 [facility] Comment on above: Order Comment: Relea se to patient->Automatic 19063&Blood Result Comment: Lesley coon for Diagnosis of Diabetes: Fasting Specimen (no caloric intake for at least 8 hours): <100 mg/dL Normal 100-125 mg/dL Increased risk for Diabetes >125 mg/dL Diagnostic for Diabetes Random Glucose (any time of day without regard to last meal): > or = 200 mg/dL plus Classic Symptoms of Diabetes Performed By: #### L D #### [address] [address] Protein [Mass/Vol] 7.2 g/dL Normal 6.0-8.0 [facility] Comment on above: Order Comment: Relea se to patient->Automatic 64381&Blood Performed By: #### L D #### [address] [address] Urea nitrogen [Mass/Vol] 15 mg/dL Normal 4-19 [facility] Comment on above: Order Comment: Relea se to patient->Automatic 42816&Blood Performed By: #### L D #### [address] [address] ALT [Catalytic activity/Vol] 20 U/L Normal 0-34 [facility] Comment on above: Order Comment: Relea se to patient->Automatic 30520&Blood Performed By: #### L D #### [address] [address] AST [Catalytic activity/Vol] 18 U/L Normal 0-31 [facility] Comment on above: Order Comment: Relea se to patient->Automatic 53283&Blood Performed By: #### L D #### [address] [address] Chloride [Moles/Vol] 106 mmol/L Normal 96-108 [facility] Comment on above: Order Comment: Relea se to patient->Automatic 68724&Blood Performed By: #### L D #### [address] [address] Potassium [Moles/Vol] 4.3 mmol/L Normal 3.3-5.1 [facility] Comment on above: Order Comment: Relea se to patient->Automatic 64031&Blood Performed By: #### L D #### [address] [address] Sodium [Moles/Vol] 142 mmol/L Normal 133-145 [facility] Comment on above: Order Comment: Relea se to patient->Automatic 90509&Blood Performed By: #### L D #### [address] [address] Complete Blood Counton 03-17 Differential Complete Automated Normal [facility] Comment on above: Order Comment: Relea se to patient->Automatic 79059&Blood Performed By: #### L D #### [address] [address] Basophils/100 WBC (Bld) 0.80 % Normal 0.00-1.00 [facility] Comment on above: Order Comment: Relea se to patient->Automatic 07732&Blood Performed By: #### L D #### [address] [address] Eosinophils/100 WBC (Bld) 0.50 % Normal 0.00-3.00 [facility] Comment on above: Order Comment: Relea se to patient->Automatic 31233&Blood Performed By: #### L D #### [address] [address] Erythrocyte distribution width (RBC) [Ratio] 12.7 % Normal 0.0-14.4 [facility] Comment on above: Order Comment: Relea se to patient->Automatic 08773&Blood Performed By: #### L D #### [address] [address] Hematocrit (Bld) [Volume fraction] 39.1 % Normal 37.0-46.0 [facility] Comment on above: Order Comment: Relea se to patient->Automatic 23380&Blood Performed By: #### L D #### [address] [id number] Hemoglobin (Bld) [Mass/Vol] 12.5 g/dL Normal 12.0-15.0 [facility] Comment on above: Order Comment: Relea se to patient->Automatic 02835&Blood Performed By: #### L D #### [address] [address] Immature granulocytes/100 WBC (Bld) 0.30 % Normal [facility] Comment on above: Order Comment: Relea se to patient->Automatic 17739&Blood Result Comment: Emma ture Granulocyte Percent includes promyelocytes, myelocytes, and metamyelocytes. IG% > 1.0 indicates a left shift is present. With automated differentials, bands are included in the neutrophil count and not in the Immature Granulocyte Percent. Performed By: #### L D #### [address] [address] Lymphocytes/100 WBC (Bld) 39.3 % Normal 25.0-45.0 [facility] Comment on above: Order Comment: Relea se to patient->Automatic 45892&Blood Performed By: #### L D #### [address] [address] MCH (RBC) [Entitic mass] 28.3 pg Normal 25.0-35.0 [facility] Comment on above: Order Comment: Relea se to patient->Automatic 26085&Blood Performed By: #### L D #### [address] [id number] MCHC 32.0 % Normal 31.0-37.0 [facility] Comment on above: Order Comment: Relea se to patient->Automatic 38806&Blood Performed By: #### L D #### [address] [address] MCV (RBC) [Entitic vol] 88.7 fL Normal 78.0-96.0 [facility] Comment on above: Order Comment: Relea se to patient->Automatic 49454&Blood Performed By: #### L D #### [address] [address] Monocytes/100 WBC (Bld) 8.30 % High 3.00-6.00 [facility] Comment on above: Order Comment: Relea se to patient->Automatic 90477&Blood Performed By: #### L D #### [address] [address] Neutrophils (Bld) [#/Vol] 3.8 10*3/uL Normal 1.8-7.5 [facility] Comment on above: Order Comment: Relea se to patient->Automatic 21799&Blood Performed By: #### L D #### [address] [address] Neutrophils/100 WBC (Bld) 50.8 % Normal 34.0-64.0 [facility] Comment on above: Order Comment: Relea se to patient->Automatic 69754&Blood Performed By: #### L D #### [address] [address] Nucleated RBC/100 WBC (Bld) [Ratio] 0.0 % Normal -1.0-0.0 [facility] Comment on above: Order Comment: Relea se to patient->Automatic 46243&Blood Performed By: #### L D #### [address] [address] Platelet mean volume (Bld) [Entitic vol] 10.2 fL Normal [facility] Comment on above: Order Comment: Relea se to patient->Automatic 33511&Blood Result Comment: MPV is platelet range and age dependent Performed By: #### L D #### [address] [address] Platelets (Bld) [#/Vol] 350 10*3/uL Normal 150-450 [facility] Comment on above: Order Comment: Relea se to patient->Automatic 93194&Blood Performed By: #### L D #### [address] [address] RBC 4.41 10E12/L Normal 4.10-4.80 [facility] Comment on above: Order Comment: Relea se to patient->Automatic 32898&Blood Performed By: #### L D #### [address] [address] WBC (Bld) [#/Vol] 7.5 10*3/uL Normal 4.5-13.0 [facility] Comment on above: Order Comment: Relea se to patient->Automatic 66325&Blood Performed By: #### L D #### [address] [address] Creatine kinaseon 03-17-2022 CK [Catalytic activity/Vol] 89 U/L Normal 24-195 [facility] Comment on above: Order Comment: Relea se to patient->Automatic 54810&Blood Performed By: #### F ERTN #### [address] [address] Erythrocyte Sedimentation Ra kendra 03-17-2022 ESR (Bld) [Velocity] 60 mm/h Normal [facility] Comment on above: Order Comment: Relea se to patient->Automatic 71202&Blood Performed By: #### L D #### [address] [id number] ESR Interpretation ----- Normal [facility] Comment on above: Order Comment: Relea se to patient->Automatic 17622&Blood Result Comment: : 0-2 mm/hr to puberty: 3-13 mm/hr - Less than 50 years old: Male: <15 mm/hr Female: <20 mm/hr - Greater than 50 years old: Male: <20 mm/hr Female: <30 mm/hr Performed By: #### L D #### [place] [address] Ferritinon 03-17-2022 Ferritin [Mass/Vol] 125 ng/mL Normal 25-207 [facility] Comment on above: Order Comment: Relea se to patient->Automatic 86489&Blood Performed By: #### F ERTN #### [place] [address] Hemoglobin A1con 03-17-2022 HbA1c (Bld) [Mass fraction] 6.0 % High 0.0-5.6 [facility] Comment on above: Order Comment: Relea se to patient->Automatic 66529&Blood Result Comment: Refe rence Interval: <5.7% 5.7-6.4% Prediabetes > or = 6.5% Diabetes Targets for diabetes management: Type I <7.5% Type II <7.0% Performed By: #### L D #### [place] [address] Immunoglobulin A,G,M,Paul Immunoglobulin E 31 IU/mL Normal 0-123 [facility] Comment on above: Order Comment: Relea se to patient->Automatic 41650&Blood Performed By: #### I GAME #### [place] [address] Immunoglobulin A 147 mg/dL Normal 61-348 [facility] Comment on above: Order Comment: Relea se to patient->Automatic 71448&Blood Performed By: #### I GAME #### [place] [address] Immunoglobulin G 1024 mg/dL Normal 549-1584 [facility] Comment on above: Order Comment: Relea se to patient->Automatic 76394&Blood Performed By: #### I GAME #### [address] [address] Immunoglobulin M 181 mg/dL Normal 23-259 [facility] Comment on above: Order Comment: Relea se to patient->Automatic 28766&Blood Performed By: #### I GAME #### [address] [address] Ironon 03-17-2022 %Saturation 33 % Normal 13-59 [facility] Comment on above: Order Comment: Relea se to patient->Automatic 00986&Blood Performed By: #### T SHR #### [address] [address] TIBC 284 ug/dL Normal 228-428 [facility] Comment on above: Order Comment: Relea se to patient->Automatic 66941&Blood Performed By: #### T SHR #### [address] [address] Iron [Mass/Vol] 94 ug/dL Normal 30-160 [facility] Comment on above: Order Comment: Relea se to patient->Automatic 92131&Blood Performed By: #### T SHR #### [address] [address] Lactate Dehydrogenaseon LDH [Catalytic activity/Vol] 174 U/L Normal 120-234 [facility] Comment on above: Order Comment: Relea se to patient->Automatic 40079&Blood Performed By: #### L D #### [address] [address] TSH with reflex T4FRon 03-17 TSH with reflex T4FR 2.540 uIU/mL Normal 0.500-4.300 [facility] Comment on above: Order Comment: Relea se to patient->Automatic 40897&Blood Performed By: #### T SHR #### [address] [address] Uric Acidon 03-17-2022 Urate [Mass/Vol] 6.0 mg/dL Normal 3.5-7.3 [facility] Comment on above: Order Comment: Relea se to patient->Automatic 49644&Blood Performed By: #### L D #### [address] [address] Urinalysis,Automatedon 03-17 Mucous Small Normal [facility] Comment on above: Order Comment: Relea se to patient->Automatic 77315&Blood Performed By: #### L D #### [address] [address] RBC (U) [#/Vol] 3.0 /uL Normal 0.0-20.0 [facility] Comment on above: Order Comment: Relea se to patient->Automatic 12176&Blood Performed By: #### L D #### [address] [address] Squamous Epithelial Cells 16 /uL Normal 0-20 [facility] Comment on above: Order Comment: Relea se to patient->Automatic 41866&Blood Performed By: #### L D #### [address] [address] WBC (U) [#/Vol] 16.0 /uL Normal 0.0-20.0 [facility] Comment on above: Order Comment: Relea se to patient->Automatic 49724&Blood Performed By: #### L D #### [address] [address] Urinalysis,Completeon 2021 Bilirubin,urine Negative Normal Negative [facility] Comment on above: Order Comment: Relea se to patient->Automatic 91315&Blood Performed By: #### L D #### [address] [address] Character Clear Normal [facility] Comment on above: Order Comment: Relea se to patient->Automatic 08960&Blood Performed By: #### L D #### [address] [address] Color (U) Yellow Normal [facility] Comment on above: Order Comment: Relea se to patient->Automatic 86034&Blood Performed By: #### L D #### [address] [address] Glucose Ql (U) Negative Normal Negative [facility] Comment on above: Order Comment: Relea se to patient->Automatic 22090&Blood Performed By: #### L D #### [address] [address] Ketones Ql (U) Negative Normal Negative [facility] Comment on above: Order Comment: Relea se to patient->Automatic 02124&Blood Performed By: #### L D #### [address] [address] Leukocyte esterase Test strip Ql (U) Negative Normal Negative [facility] Comment on above: Order Comment: Relea se to patient->Automatic 33973&Blood Performed By: #### L D #### [address] [address] Nitrite Ql (U) Negative Normal Negative [facility] Comment on above: Order Comment: Relea se to patient->Automatic 67560&Blood Performed By: #### L D #### [address] [address] pH, Urine 7.0 Normal 5.0-8.0 [facility] Comment on above: Order Comment: Relea se to patient->Automatic 84011&Blood Performed By: #### L D #### [address] [address] Protein,Ur Negative Normal Neg.-Trace [facility] Comment on above: Order Comment: Relea se to patient->Automatic 47045&Blood Performed By: #### L D #### [address] [id number] Specific gravity (U) [Rel density] 1.015 Normal 1.005-1.030 [facility] Comment on above: Order Comment: Relea se to patient->Automatic 22541&Blood Performed By: #### L D #### [address] [address] Urobilinogen (U) [Mass/Vol] Negative Normal Negative [facility] Comment on above: Order Comment: Relea se to patient->Automatic 27013&Blood Performed By: #### L D #### [address] [address] Volume 12 ml Normal 12 [facility] Comment on above: Order Comment: Relea se to patient->Automatic 55812&Blood Performed By: #### L D #### [address] [address] Vitamin D 25 OHon 03-17-2022 25 OH Vitamin D 13 ng/mL Low 30-100 [facility] Comment on above: Order Comment: Relea se to patient->Automatic 33318&Blood Result Comment: Refe rence ranges provided by [facility] Laboratory are based on Endocrine Society Guidelines: Level: Characterization < 21 ng/mL: Vitamin D deficiency 21-29 ng/mL: Suboptimal Vitamin D status 30-100 ng/mL: Optimal Vitamin D status >100 ng/mL: Potentially toxic Vitamin D effects Performed By: #### L D #### [address] [address] ED Provider Progress Noteon 11-16-2022 Employment Program Representative Authentication Interface Message Text Tari Uribe : 2005 Chief Complaint Patient presents with Leg Pain No Known Allergies DOS: 03/02/2022 HPI 16-year-old female with history of depression anxiety and ADD presents with greater than 1 week of intermittent headaches and bilateral leg pain. She is most concerned about her leg pains. She has migrating musculoskeletal pain which she states feels like she is being stabbed. The pain does not stay in 1 spot and from moment to moment will be present in 1 spot, go away, then be present in another spot on the other leg. She was recently admitted to [facility] for her migraines but had leg pain prior to this admission. She has recently had blood work with CBC, CMP, ESR, and CK which showed an elevated ESR of 70 and a minimally elevated absolute monocyte count. Of note she has had recent breast abscesses for which she is currently on antibiotics. Review of Systems Constitutional: Negative for chills and fever. HENT: Negative for sore throat. Eyes: Negative for visual disturbance. Respiratory: Negative for choking and shortness of breath. Cardiovascular: Negative for chest pain and leg swelling. Gastrointestinal: Negative for abdominal pain, diarrhea, nausea and vomiting. Genitourinary: Negative for decreased urine volume, dysuria and hematuria. Musculoskeletal: Positive for arthralgias. Negative for back pain, joint swelling and neck pain. Skin: Positive for wound (breast boils/abscess). Negative for rash. Neurological: Positive for headaches. Negative for dizziness, weakness, light-headedness and numbness. Psychiatric/Behavioral : Negative for dysphoric mood and suicidal ideas. The patient is not nervous/anxious. All other systems reviewed and are negative. History reviewed. No pertinent past medical history. History reviewed. No pertinent surgical history. Pediatric History Patient Parents Kaylyn Torres (Mother) Other Topics Concern Not on file Social History Narrative Not on file ED Triage Vitals Date and Time Temp Temp src Pulse Resp BP SpO2 Weight User 03/02/22 1324 36.4 C (97.5 F) Temporal 72 22 123/81 100 % 153 kg BLK Vitals: 03/02/22 1324 03/02/22 1605 BP: 123/81 (!) 123/97 Patient Position: Sitting Pulse: 72 72 Resp: Temp: 36.4 C (97.5 F) 36.3 C (97.3 F) SpO2: 100% 99% Weight: (!) 153 kg Physical Exam Vitals and nursing note reviewed. Exam conducted with a hall tender present. Constitutional: General: She is not in acute distress. Appearance: She is obese. She is not toxic-appearing. HENT: Head: Normocephalic and atraumatic. Right Ear: A middle ear effusion is present. Tympanic membrane is not erythematous or bulging. Left Ear: A middle ear effusion is present. Tympanic membrane is not erythematous or bulging. Nose: Nose normal. No rhinorrhea. Mouth/Throat: Mouth: Mucous membranes are moist. Pharynx: Oropharynx is clear. Eyes: General: No scleral icterus. Conjunctiva/sclera: Conjunctivae normal. Pupils: Pupils are equal, round, and reactive to light. Neck: Musculoskeletal: Normal range of motion and neck supple. Cardiovascular: Rate and Rhythm: Normal rate and regular rhythm. Pulses: Normal pulses. Heart sounds: Normal heart sounds. Pulmonary: Effort: Pulmonary effort is normal. Breath sounds: No stridor. No wheezing. Chest: Abdominal: General: There is no distension. Palpations: Abdomen is soft. Tenderness: There is no abdominal tenderness. There is no rebound. Musculoskeletal: Cervical back: Normal range of motion and neck supple. Skin: Capillary Refill: Capillary refill takes less than 2 seconds. Findings: Wound present. Neurological: Mental Status: She is alert. Psychiatric: Mood and Affect: Mood normal. Behavior: Behavior normal. Procedures MDM 16-year-old female with limited past medical history but recent breast abscesses and elevated ESR presents with migratory lower extremity musculoskeletal pain. Vitals remarkable for minimal hypertension. She is obese. Patient has unremarkable neurological exam, can ambulate on her tippy toes, heels, and 1 foot and from the other without difficulty, and has no signs of ataxia. Intact proprioception to lower extremities. 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 There is no soft tissue abnormalities. Her symptoms are not consistent with cauda equina, sciatica, or other obvious neurologic cause. She has normal gait and normal reflexes making a neurologic cause such as Guillian barre, acute flacid myelitis. Given leg pain, Bilateral LE DVT ultrasound performed and was negative. She has no joint pain or fevers to suggest infected joint/septic joint. RFA was negative. She has bilateral ear serous effusion likely cause for dizziness. She is already on antibiotics which she has taken for 1 day for breast abscess. Patient was discharged home with referrals to rheumatology for pain regimen and (more content not included)... Normal [facility] RFILM Respiratory Panel Film Arrayon 03-02-2022 Respiratory Panel Film Array SNOMED code Not detected Normal [facility] Comment on above: Order Comment: Relea se to patient->Automatic 64890&Blood Performed By: #### T SHR #### [address] [address] Date of Symptom Onset [id number] Normal [facility] Comment on above: Order Comment: Relea se to patient->Automatic 31911&Blood Performed By: #### T SHR #### [address] [address] Employed in Healthcare setting? No Normal [facility] Comment on above: Order Comment: Relea se to patient->Automatic 68140&Blood Performed By: #### T SHR #### [address] [address] Hospitalized? No Normal [facility] Comment on above: Order Comment: Relea se to patient->Automatic 25624&Blood Performed By: #### T SHR #### [address] [address] ICU? No Normal [facility] Comment on above: Order Comment: Relea se to patient->Automatic 41616&Blood Performed By: #### T SHR #### [address] [address] ? Unknown Normal [facility] Comment on above: Order Comment: Relea se to patient->Automatic 75766&Blood Performed By: #### T SHR #### [address] [address] Resident in congregate care setting? No Normal [facility] Comment on above: Order Comment: Relea se to patient->Automatic 19252&Blood Performed By: #### T SHR #### [address] [id number] SARS-CoV-2 (COVID-19) RNA TARUN+probe Ql (Unsp spec) No Normal [facility] Comment on above: Order Comment: Relea se to patient->Automatic 36500&Blood Performed By: #### T SHR #### [address] [address] Symptomatic as defined by CDC? Yes Normal [facility] Comment on above: Order Comment: Relea se to patient->Automatic 01121&Blood Performed By: #### T SHR #### [address] [address] Respiratory Panel Film Array on 03-02-2022 Respiratory pathogens DNA and RNA panel TARUN+non-probe (Nph) See Below [facility] Comment on above: Source: NPH Collecte d: 03/02/22 16:47 Site: Received : 03/02/22 17:01 Respiratory Panel Film Array FINAL 03/02/22 18:10 - NEGATIVE: No SARS-CoV-2 detected. NEGATIVE: No respiratory pathogens were detected. - The Film Array Respiratory Panel detects DNA or RNA for the following organisms: Adenovirus [id number]-2 Coronavirus 229E Coronavirus HKU1 Coronavirus NL63 Coronavirus OC43 Human metapneumovirus Rhinovirus/Enterovirus Influenza A virus(targets H1, H3, and H1-2009) Influenza B virus Parainfluenza Virus 1 Parainfluenza Virus 2 Parainfluenza Virus 3 Parainfluenza Virus 4 Respiratory Syncytial virus (RSV) Bordetella parapertussis Bordetella pertussis Chlamydia pneumoniae Mycoplasma pneumoniae - Comment: Negative results do not preclude SARS-CoV-2 infection and should not be used as the sole basis for treatment or other patient management decisions. Negative results must be combined with clinical observations, patient history, and epidemiological information. - Method: The hulu Respiratory Panel 2.1 (RP2.1) is a multiplexed nucleic acid test intended for the simultaneous qualitative detection and differentiation of nucleic acids from multiple viral and bacterial respiratory organisms, including nucleic acid from Severe Acute Respiratory Syndrome Coronavirus 2 (SARS-CoV-2). This test is FDA [place] authorized. [facility] US DUPLEX LOWER EXTREMITY BI LAT VEINon 03-02-2022 US DUPLEX LOWER EXTREMITY BILAT VEIN CLINICAL HISTORY: migartory b/l leg pain TECHNIQUE: Ultrasound was performed of the deep venous system of both lower extremities using grayscale, color Doppler and spectral Doppler with and without compression. COMPARISON: None. FINDINGS: RIGHT LOWER EXTREMITY Venous catheter: None. Unless otherwise specified, each imaged vessel has a normal perdomo-scale appearance with normal color Doppler flow and normal venous waveforms. In addition, unless otherwise specified, each vessel is easily compressible with normal response to augmentation maneuvers. There are no abnormal collateral vessels. PROXIMAL DEEP VEINS External iliac vein: Patent. Common femoral vein: Patent. Femoral vein: Patent. DISTAL DEEP VEINS Popliteal vein: Patent. Peroneal vein: Patent. Posterior tibial veins: Patent. Gastrocnemius veins: Patent. SUPERFICIAL VEINS Origin of the greater saphenous vein: Patent. OTHER FINDINGS: None. LEFT LOWER EXTREMITY Venous catheter: None. Unless otherwise specified, each imaged vessel has a normal perdomo-scale appearance with normal color Doppler flow and normal venous waveforms. In addition, unless otherwise specified, each vessel is easily compressible with normal response to augmentation maneuvers. There are no abnormal collateral vessels. PROXIMAL DEEP VEINS External iliac vein: Patent. Common femoral vein: Patent. Femoral vein: Patent. DISTAL DEEP VEINS Popliteal vein: Patent. Peroneal vein: Patent. Posterior tibial veins: Patent. Gastrocnemius veins: Patent. SUPERFICIAL VEINS Origin of the greater saphenous vein: Patent. OTHER FINDINGS: None. IMPRESSION: No evidence of deep venous thrombosis in both lower extremities. This report has been created using voice recognition software Signed by: Dr. Alea Sosa at 03/02/2022 18:55 Normal [facility] US Lower extremity vein - bi lateralon 03-02-2022 IMPRESSION: No evidence of deep venous thrombosis in both lower extremities. This report has been created using voice recognition software [facility] CLINICAL HISTORY: migartory b/l leg pain TECHNIQUE: Ultrasound was performed of the deep venous system of both lower extremities using grayscale, color Doppler and spectral Doppler with and without compression. COMPARISON: None. FINDINGS: RIGHT LOWER EXTREMITY Venous catheter: None. Unless otherwise specified, each imaged vessel has a normal perdomo-scale appearance with normal color Doppler flow and normal venous waveforms. In addition, unless otherwise specified, each vessel is easily compressible with normal response to augmentation maneuvers. There are no abnormal collateral vessels. PROXIMAL DEEP VEINS External iliac vein: Patent. Common femoral vein: Patent. Femoral vein: Patent. DISTAL DEEP VEINS Popliteal vein: Patent. Peroneal vein: Patent. Posterior tibial veins: Patent. Gastrocnemius veins: Patent. SUPERFICIAL VEINS Origin of the greater saphenous vein: Patent. OTHER FINDINGS: None. LEFT LOWER EXTREMITY Venous catheter: None. Unless otherwise specified, each imaged vessel has a normal perdomo-scale appearance with normal color Doppler flow and normal venous waveforms. In addition, unless otherwise specified, each vessel is easily compressible with normal response to augmentation maneuvers. There are no abnormal collateral vessels. PROXIMAL DEEP VEINS External iliac vein: Patent. Common femoral vein: Patent. Femoral vein: Patent. DISTAL DEEP VEINS Popliteal vein: Patent. Peroneal vein: Patent. Posterior tibial veins: Patent. Gastrocnemius veins: Patent. SUPERFICIAL VEINS Origin of the greater saphenous vein: Patent. OTHER FINDINGS: None. [facility] RADIOLOGY Alea Sosa MD - 03/02/2022 CLINICAL HISTORY: migartory b/l leg pain TECHNIQUE: Ultrasound was performed of the deep venous system of both lower extremities using grayscale, color Doppler and spectral Doppler with and without compression. COMPARISON: None. FINDINGS: RIGHT LOWER EXTREMITY Venous catheter: None. Unless otherwise specified, each imaged vessel has a normal perdomo-scale appearance with normal color Doppler flow and normal venous waveforms. In addition, unless otherwise specified, each vessel is easily compressible with normal response to augmentation maneuvers. There are no abnormal collateral vessels. PROXIMAL DEEP VEINS External iliac vein: Patent. Common femoral vein: Patent. Femoral vein: Patent. DISTAL DEEP VEINS Popliteal vein: Patent. Peroneal vein: Patent. Posterior tibial veins: Patent. Gastrocnemius veins: Patent. SUPERFICIAL VEINS Origin of the greater saphenous vein: Patent. OTHER FINDINGS: None. LEFT LOWER EXTREMITY Venous catheter: None. Unless otherwise specified, each imaged vessel has a normal perdomo-scale appearance with normal color Doppler flow and normal venous waveforms. In addition, unless otherwise specified, each vessel is easily compressible with normal response to augmentation maneuvers. There are no abnormal collateral vessels. PROXIMAL DEEP VEINS External iliac vein: Patent. Common femoral vein: Patent. Femoral vein: Patent. DISTAL DEEP VEINS Popliteal vein: Patent. Peroneal vein: Patent. Posterior tibial veins: Patent. Gastrocnemius veins: Patent. SUPERFICIAL VEINS Origin of the greater saphenous vein: Patent. OTHER FINDINGS: None. IMPRESSION: No evidence of deep venous thrombosis in both lower extremities. This report has been created using voice recognition software [facility] Radiology Study observation (narrative) [facility] US Lower extremity vein - bi lateralOrdered By: Alea Sosa on 03-02-2022 [facility] Work Phone: XR Tibia and Fibula Viewson 03-02-2022 IMPRESSION: Normal radiographic examination of the tibia and fibula. This report has been created using voice recognition software [facility] Jean Mayer MD - 03/02/2022 PROCEDURE: TIBIA FIBULA 2 VIEWS RIGHT CLINICAL HISTORY: msk leg pain COMPARISON: None. FINDINGS: There is no visible fracture. 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 IMPRESSION: Normal radiographic examination of the tibia and fibula. This report has been created using voice recognition software [facility] IMPRESSION: Normal radiographic examination of the tibia and fibula. This report has been created using voice recognition software [facility] Jean Mayer MD - 03/02/2022 PROCEDURE: TIBIA FIBULA 2 VIEWS LEFT CLINICAL HISTORY: msk leg pain COMPARISON: None. FINDINGS: There is no visible fracture or other osseous abnormality. The soft tissues are radiographically normal. IMPRESSION: Normal radiographic examination of the tibia and fibula. This report has been created using voice recognition software [facility] Radiology Study observation (narrative) [facility] Radiology Study observation (narrative) [facility] XR Tibia and Fibula ViewsOrd ered By: Jean Wise on 03-02-2022 [facility] Work Phone: Vital Signs Date Time Vital Sign Value Performing Clinician Facility 09-21-2024 09:28-0400 Body mass index (BMI) [Ratio] 48.57 kg/m2 Edilberto Moomaw [employer]ACH[employer] SETTER.[employer] CON[employer]YOR TENDER Work Phone: [facility] 09-21-2024 09:28-0400 Body temperature 97.7 [degF] Edilberto Moomaw [employer] MACHINE WELDER SETTER.CHAR CONVEYOR TENDER Work Phone: [facility] 09-21-2024 09:28-0400 Body weight 149.2 kg Edilberto Moomaw [employer] MACHINE WELDER SETTER.CHAR CONVEYOR TENDER Work Phone: [facility] 09-21-2024 09:28-0400 Diastolic blood pressure 80 mm[Hg] Edilberto Moomaw [employer]LECTRON [employer] MACHINE WELDER SETTER.CHAR CONVEYOR TENDER Work Phone: [facility] 09-21-2024 09:28-0400 Heart rate 82 /min Edilberto Moomaw [employer]LECTRON [employer] MACHINE WELDER SETTER.CHAR CONVEYOR TENDER Work Phone: [facility] 09-21-2024 09:28-0400 Respiratory rate 20 /min Edilberto Moomaw [employer]LECTRON [employer] MACHINE WELDER SETTER.CHAR CONVEYOR TENDER Work Phone: [facility] 09-21-2024 09:28-0400 SaO2% (BldA) [Mass fraction] 99 % Edilberto Moomaw [employer] MACHINE WELDER SETTER.CHAR CONVEYOR TENDER Work Phone: [facility] 09-21-2024 09:28-0400 Systolic blood pressure 130 mm[Hg] Edilberto Moomaw [employer]LECT[employer] MACHINE WELDER SETTER.CHAR CONVEYOR TENDER Work Phone: [facility] 11-20-2023 11:52-0400 Body mass index (BMI) [Ratio] 52.42 kg/m2 Jose Alonzo [employer]LECT[employer] MACHINE WELDER SETTER.CHAR CONVEYOR TENDER Work Phone: [facility] 11-20-2023 11:52-0400 Body weight 161.03 kg Jose Alonzo [employer]LECT[employer] MACHINE WELDER SETTER.CHAR CONVEYOR TENDER Work Phone: [facility] 11-20-2023 11:52-0400 Diastolic blood pressure 70 mm[Hg] Jose Alonzo [employer]LECT[employer] MACHINE WELDER SETTER.CHAR CONVEYOR TENDER Work Phone: [facility] 11-20-2023 11:52-0400 Heart rate 57 /min Jose Alonzo ELECTRON [employer] MACHINE WELDER SETTER.CHAR CONVEYOR TENDER Work Phone: [facility] 11-20-2023 11:52-0400 Respiratory rate 14 /min Jose Alonzo ELECTRON [employer] MACHINE WELDER SETTER.CHAR CONVEYOR TENDER Work Phone: [facility] 11-20-2023 11:52-0400 Systolic blood pressure 125 mm[Hg] Jose Alonzo ELECTRON [employer] MACHINE WELDER SETTER.CHAR CONVEYOR TENDER Work Phone: [facility] 07-18-2023 14:00-0400 Body weight 162.84 kg Jose Alonzo ELECT[employer] MACHINE WELDER SETTER.CHAR CONVEYOR TENDER Work Phone: [facility] 07-18-2023 14:00-0400 Diastolic blood pressure 82 mm[Hg] Jose Alonzo ELECTRON [employer] MACHINE WELDER SETTER.CHAR CONVEYOR TENDER Work Phone: [facility] 07-18-2023 14:00-0400 Heart rate 84 /min Jose Alonzo ELECTRON [employer] MACHINE WELDER SETTER.CHAR CONVEYOR TENDER Work Phone: [facility] 07-18-2023 14:00-0400 Respiratory rate 16 /min Jose Alonzo ELECT[employer] MACHINE WELDER SETTER.CHAR CONVEYOR TENDER Work Phone: [facility] 07-18-2023 14:00-0400 Systolic blood pressure 130 mm[Hg] Jose Alonzo ELECTRON [employer] MACHINE WELDER SETTER.CHAR CONVEYOR TENDER Work Phone: [facility] 09-19-2022 08:14-0400 Body height 176.7 cm Isrrael Woodall MD Work Phone: [facility] 09-19-2022 08:14-0400 Body mass index (BMI) [Percentile] Per age and sex 99.45 % Isrrael Woodall MD Work Phone: [facility] 09-19-2022 08:14-0400 Body temperature 97 [degF] Isrrael Woodall MD Work Phone: [facility] 09-19-2022 08:14-0400 Body weight 162.39 kg Isrrael Woodall MD Work Phone: [facility] 09-19-2022 08:14-0400 Diastolic blood pressure 84 mm[Hg] Isrrael Woodall MD Work Phone: [facility] 09-19-2022 08:14-0400 Heart rate 102 /min Isrrael Woodall MD Work Phone: [facility] 09-19-2022 08:14-0400 Respiratory rate 18 /min Isrrael Woodall MD Work Phone: [facility] 09-19-2022 08:14-0400 Systolic blood pressure 128 mm[Hg] Isrrael Woodall MD Work Phone: [facility] 03-02-2022 16:05-0500 Body temperature 97.3 [degF] Crystal Shona DO Work Phone: [facility] 03-02-2022 16:05-0500 Diastolic blood pressure 97 mm[Hg] Crystal Shona DO Work Phone: [facility] 03-02-2022 16:05-0500 Heart rate 72 /min Crystal Shona DO Work Phone: [facility] 03-02-2022 16:05-0500 Respiratory rate 22 /min Crystal Shona DO Work Phone: [facility] 03-02-2022 16:05-0500 SaO2% (BldA) [Mass fraction] 99 % Crystal Shona DO Work Phone: [facility] 03-02-2022 16:05-0500 Systolic blood pressure 123 mm[Hg] Crystal Shona DO Work Phone: [facility] 03-02-2022 13:24-0500 Body weight 153 kg Crystal Shona DO Work Phone: [facility] 02-28-2022 13:57-0500 Body temperature 99.19 [degF] Isrrael Woodall MD Work Phone: [facility] 02-28-2022 13:57-0500 Body weight 155.04 kg Isrrael Woodall MD Work Phone: [facility] 02-28-2022 13:57-0500 Diastolic blood pressure 82 mm[Hg] Isrrael Woodall MD Work Phone: [facility] 02-28-2022 13:57-0500 Heart rate 108 /min Isrrael Woodall MD Work Phone: [facility] 02-28-2022 13:57-0500 Respiratory rate 16 /min Isrrael Woodall MD Work Phone: [facility] 02-28-2022 13:57-0500 Systolic blood pressure 124 mm[Hg] Isrrael Woodall MD Work Phone: [facility] 01-10-2022 10:12-0400 Body temperature 97 [degF] Sania Athy PA-C Work Phone: [facility] 01-10-2022 10:12-0400 Body weight 152.86 kg Sania Athy PA-C Work Phone: [facility] 01-10-2022 10:12-0400 Diastolic blood pressure 82 mm[Hg] Sania Athy PA-C Work Phone: [facility] 01-10-2022 10:12-0400 Heart rate 92 /min Sania Athy PA-C Work Phone: [facility] 01-10-2022 10:12-0400 Respiratory rate 18 /min Sania Athy PA-C Work Phone: [facility] 01-10-2022 10:12-0400 SaO2% (BldA) [Mass fraction] 99 % Sania Athy PA-C Work Phone: [facility] 01-10-2022 10:12-0400 Systolic blood pressure 126 mm[Hg] Sania Athy PA-C Work Phone: [facility] 07-19-2021 14:27-0400 Body temperature 97 [degF] Isrrael Woodall MD Work Phone: [facility] 07-19-2021 14:27-0400 Body weight 154.13 kg Isrrael Woodall MD Work Phone: [facility] 07-19-2021 14:27-0400 Diastolic blood pressure 72 mm[Hg] Isrrael Woodall MD Work Phone: [facility] 07-19-2021 14:27-0400 Heart rate 88 /min Isrrael Woodall MD Work Phone: [facility] 07-19-2021 14:27-0400 Respiratory rate 16 /min Isrrael Woodall MD Work Phone: [facility] 07-19-2021 14:27-0400 Systolic blood pressure 118 mm[Hg] Isrrael Woodall MD Work Phone: [facility] Encounters Encounter Date Encounter Type Care Provider Facility Start: 09-21-2024 End: 09-21-2024 Patient encounter procedure Edilberto Gutiérrez ELECTRON BEAM MACHINE WELDER SETTER.CHAR CONVEYOR TENDER Work Phone: [facility] Comment on above: Sore throat (Primary Dx); Eustachian tube dysfunction, left Start: 09-21-2024 End: 09-21-2024 ambulatory JOSE ALONZO Facility:[facility] Start: 12-23-2023 End: 12-23-2023 Emergency department patient visit Reese Lima Facility:[facility] Start: 11-21-2023 Telephone encounter Jose crockett ELECTRON BEAM MACHINE WELDER SETTER.CHAR CONVEYOR TENDER Work Phone: [facility] Comment on above: Results Start: 11-20-2023 End: 11-20-2023 Patient encounter procedure Jose Alonzo APRN.CHAR CONVEYOR TENDER Work Phone: [facility] Comment on above: Prediabetes; ALIZA (generalized anxiety disorder); Screening for STD (sexually transmitted disease) Start: 11-20-2023 End: 11-20-2023 ambulatory JOSE ALONZO Facility:[facility] Start: 09-18-2023 Refill Jose reis ELECTRON BEAM MACHINE WELDER SETTER.CHAR CONVEYOR TENDER Work Phone: [facility] Comment on above: Refill Request Start: 07-19-2023 ambulatory Brina Rivera MD Work Phone: Endocrinology Comment on above: labs Start: 07-19-2023 E-mail encounter fro m caregiver Brina Rivera MD Work Phone: [facility] Start: 07-18-2023 End: 07-18-2023 Patient encounter procedure Jose Cheri BAUM Work Phone: [facility] Comment on above: ADHD (attention defi cit hyperactivity disorder), combined type (Primary Dx); ALIZA (generalized anxiety disorder) Start: 12-24-2022 End: 12-24-2022 Emergency department patient visit RAYMON Rosa [facility] Start: 10-19-2022 Telephone encounter Isrrael floyd MD Work Phone: [facility] Comment on above: Endocrinology Start: 10-04-2022 Patient encounter procedure Tera Miller MD Work Phone: [facility] Start: 09-19-2022 End: 09-19-2022 Patient encounter procedure Isrrael Woodall MD Work Phone: [facility] Comment on above: Encounter for routin e child health examination w/o abnormal findings (Primary Dx); Encounter for immunization; Glucose intolerance; Chronic pain of both knees; Body mass index equal to or greater than 95th percentile for age in pediatric patient Start: 09-19-2022 End: 09-19-2022 Patient encounter status Isrrael Woodall MD Work Phone: [facility] Start: 05-05-2022 End: 05-06-2022 ambulatory [facility] Start: 05-05-2022 End: 05-05-2022 ambulatory [facility] Start: 05-05-2022 End: 05-05-2022 Subsequent hospital visit by physician Tee Warner MD Work Phone: [facility] Comment on above: Elevated hemoglobin A1c; Severe obesity (BMI >= 40); Acanthosis nigricans Start: 03-24-2022 End: 03-24-2022 ambulatory ISRRAEL WOODALL [facility] Start: 03-17-2022 End: 03-18-2022 ambulatory [facility] Start: 03-17-2022 End: 03-17-2022 ambulatory [facility] Start: 03-02-2022 End: 03-02-2022 Emergency department patient visit JANE NAGEL [facility] Start: 03-02-2022 End: 03-02-2022 Emergency department patient visit Jane Nagel DO Work Phone: [facility] Comment on above: Migratory pain (Prim coral Dx) Start: 03-02-2022 Telephone encounter Isrrael floyd MD Work Phone: [facility] Comment on above: Results Start: 02-28-2022 Telephone encounter Isrrael floyd MD Work Phone: [facility] Comment on above: Results Start: 02-28-2022 End: 02-28-2022 Office outpatient visit 25 minutes Isrrael Woodall MD Work Phone: [facility] Comment on above: Intractable headache , unspecified chronicity pattern, unspecified headache type (Primary Dx); Blurred vision; Pain in both lower extremities; Dizziness; Skin infection; BMI (body mass index), pediatric, greater than 99% for age Start: 02-28-2022 End: 02-28-2022 Patient encounter procedure Jose Almeida APRN.CNP Work Phone: [facility] Comment on above: Procedure not zeny d out (Primary Dx) Headaches, migraine (Primary Dx) Start: 01-10-2022 End: 01-10-2022 Patient encounter procedure Sania Duval PA-C Work Phone: [facility] Comment on above: Rash (Primary Dx) Start: 07-19-2021 End: 07-19-2021 Patient encounter procedure Isrrael Woodall MD Work Phone: [facility] Comment on above: Constipation, unspec ified constipation type (Primary Dx); Diarrhea, unspecified type; Abdominal pain, unspecified abdominal location Start: 07-02-2021 End: 07-02-2021 ambulatory AAKASH DAILY [facility] Procedures Date Procedure Procedure Detail Performing Clinician Start: 09-21-2024 Iadna streptococcus group a amplified probe tq Oscar Barraza MD Work Phone: Start: 12-24-2022 Ct abdomen & pelvis w/o contrast material [facility] Start: 12-24-2022 Urnls dip stick/tabl et reagent auto microscopy R[facility]MON BLACKBURN Start: 12-24-2022 Blood count complete auto&auto difrntl wbc R[facility] BLACKBURN Start: 12-24-2022 SALINE LOCK IV RAYMON ESQUIVEL Start: 12-24-2022 Urine test visual color cmprsn meths [facility] BLACKBURN Start: 09-19-2022 MENINGOCOCCAL B VACC INE (BEXSERO) Isrrael Woodall MD Work Phone: Start: 05-05-2022 Assay of insulin total Tee Warner MD Work Phone: Start: 05-05-2022 Lipid panel Tee bustillo MD Work Phone: Start: 03-17-2022 Blood count hemoglobin [facility] Comment on above: Order Comment: Relea se to patient->Automatic 19714&Blood Performed By: #### L D #### [facility]'[address] [id number] Start: 03-02-2022 Dup-scan xtr veins c omplete bilateral study Oscar Cody DO Work Phone: Start: 03-02-2022 Iadna respiratry pro be & rev trnscr 04-10 target Oscar Cody DO Work Phone: Start: 03-02-2022 End: 03-02-2022 Radiologic examination tibia & fibula 2 views Oscar Cody DO Work Phone: Start: 07-07-2020 Adult depression scr eening assessment Isrrael Woodall MD Work Phone: Plan of Treatment Date Care Activity Detail Author Start: 12-07-2025 Urine microalbumin profile [facility] Start: 12-16-2024 Influenza vaccination Influenz a Vaccine (Season Ended) [facility] Start: 11-22-2024 End: 11-22-2024 Patient encounter procedure 11/22/2024 2:40 PM EDT Office Visit [facility] [place] [address] Jose Alonzo APRN.CHAR CONVEYOR TENDER [address] [place] [address] annual physical [facility] Comment on above: annual physical Start: 11-19-2024 Anxiety Screening Anxiety Screening [facility] Comment on above: Postponed from 04/24 (Declined at this time) Start: 11-19-2024 GC (Gonorrhea) Screening (18-24) GC (Gonorrhea) Screening (18-24) [facility] Start: 11-19-2024 Screening for Chlamy ran trachomatis Chlamydia Screening () [facility] Start: 04-12-2024 Covid-19 Vaccine () Covid-19 Vaccine () [facility] Comment on above: Postponed from 12/16 (Declined at this time) Start: 12-17-2023 Covid-19 Vaccine () Covid-19 Vaccine () [facility] Start: 12-17-2023 Influenza vaccination Influenza Vacc ine (#1) [facility] Start: 11-20-2023 End: 02-19-2024 Chlamydia trachomatis+Neisseria gonorrhoeae DNA [Presence] in Unspecified specimen by TARUN with probe detection [facility] Work Phone: Comment on above: Expected: 11/20/2023 , Expires: 02/19/2024 Start: 11-20-2023 Depression Screening Depression Scre ening [facility] Comment on above: Postponed from 04/24 (Declined at this time) Start: 07-26-2023 End: 10-25-2023 Cortisol [Mass/volume] in Serum or Plasma --post dose dexamethasone CORTISOL SUPRES POST Lab Routine Glucose intolerance Hirsutism Expected: 07/26/2023, Expires: 10/25/2023 [facility] Work Phone: Comment on above: Expected: 07/26/2023 , Expires: 10/25/2023 Start: 07-26-2023 End: 10-25-2023 DEXAMETHASONE DEXAMETHASONE Lab Routine Glucose intolerance Hirsutism Expected: 07/26/2023, Expires: 10/25/2023 [facility] Work Phone: Comment on above: Expected: 07/26/2023 , Expires: 10/25/2023 Start: 07-19-2023 End: 10-18-2023 17-Hydroxyprogesterone [Mass/volume] in Serum or Plasma HYDROXYPROGESTERONE-17 Lab Routine Hirsutism Expected: 07/19/2023, Expires: 10/18/2023 [facility] Work Phone: Comment on above: Expected: 07/19/2023 , Expires: 10/18/2023 Start: 07-19-2023 End: 10-18-2023 BIOAVAIL TESTO/SHBG, FEM & CHILD BIOAVAIL TESTO/SHBG, FEM & CHILD Lab Routine Hirsutism Expected: 07/19/2023, Expires: 10/18/2023 [facility] Work Phone: Comment on above: Expected: 07/19/2023 , Expires: 10/18/2023 Start: 07-19-2023 End: 10-18-2023 DHEA-S BLD DHEA-S BLD Lab Routine Hirsutism Expected: 07/19/2023, Expires: 10/18/2023 [facility] Work Phone: Comment on above: Expected: 07/19/2023 , Expires: 10/18/2023 Start: 04-17-2023 Behavioral Health Screening Behavioral Health Screening [facility] Start: 04-17-2023 Depression Assessment Depression Ass essment [facility] Start: 12-16-2022 Influenza vaccination INFLUENZA (#1) [facility] Start: 10-17-2022 MENINGOCOCCAL B: Consider based on risk (2 of 2 - Risk Bexsero 2-dose series) MENINGOCOCCAL B: Consider based on risk (2 of 2 - Risk Bexsero 2-dose series) [facility] Start: 09-19-2022 End: 11-19-2022 Erythrocyte sedimentation rate SED RATE WESTERGREN Lab Routine Chronic pain of both knees Expected: 09/19/2022, Expires: 11/19/2022 [facility] Work Phone: Comment on above: Expected: 09/19/2022 , Expires: 11/19/2022 Start: 09-19-2022 End: 11-19-2022 GLUC MADISON, 2-HR NON-GEST, 75 GM, FASTING GLUC MADISON, 2-HR NON-GEST, 75 GM, FASTING Lab Routine Glucose intolerance Expected: 09/19/2022, Expires: 11/19/2022 [facility] Work Phone: Comment on above: Expected: 09/19/2022 , Expires: 11/19/2022 Start: 08-15-2022 End: 08-15-2022 Patient encounter procedure 08/15/2022 Office Visit Endocrinology Tee Warner MD [address] [facility] [address] [place] [address] Diabetes & End[facility] Start: 06-30-2022 End: 06-30-2022 ambulatory 06/30/2022 Telehealth Infectious [place] [address] Infectious Disease - [facility] Start: 06-16-2022 End: 06-16-2022 Patient encounter procedure 06/16/2022 Office Visit Rheumatology Holly Tolbert MD [address] [place] [address] Rheumatology - [facility] Start: 06-08-2022 End: 06-08-2022 Clinical Support 06/08/2022 Clinical Support Endocrinology [address] [address] Diabetes & Endocrinology [facility] Start: 2022 CHLAMYDIA SCREENING (18-24) CHLAMYDIA SCREENING (18-24) [facility] Start: 2022 Depression Screening Depression Scre ening [facility] Start: 2022 GC (GONORRHEA) SCREENING (18-24) GC (GONORRHEA) SCREENING (18-24) [facility] Start: 2022 Hearing Screening Hearing Screening [facility] Start: 2022 HEPATITIS C SCREENING HEPATITIS C [facility] Start: 2022 Hepatitis C screening Hepatitis C [facility] Start: 2022 HIV SCREENING HIV SCREENING [facility] Start: 2022 HIV screening HIV Screening [facility] Start: 2022 Screening for Chlamy ran trachomatis Chlamydia Screening (18-24) [facility] Start: 04-17-2022 DEPRESSION ASSESSMENT DEPRESSION ASS ESSMENT [facility] Start: 02-28-2022 End: 04-30-2022 CBC W Auto Differential panel - Blood CBC + DIFF Lab Routine Acute nonintractable headache, unspecified headache type Myalgia Expected: 02/28/2022, Expires: 04/30/2022 [facility] Work Phone: Comment on above: Expected: 02/28/2022 , Expires: 04/30/2022 Start: 02-28-2022 End: 04-30-2022 Comprehensive metabolic 2000 panel - Serum or Plasma COMP METABOLIC PANEL Lab Routine Acute nonintractable headache, unspecified headache type Myalgia Expected: 02/28/2022, Expires: 04/30/2022 [facility] Work Phone: Comment on above: Expected: 02/28/2022 , Expires: 04/30/2022 Start: 02-28-2022 End: 04-30-2022 Creatine kinase [Enzymatic activity/volume] in Serum or Plasma CK CREATINE KINASE Lab Routine Acute nonintractable headache, unspecified headache type Myalgia Expected: 02/28/2022, Expires: 04/30/2022 [facility] Work Phone: Comment on above: Expected: 02/28/2022 , Expires: 04/30/2022 Start: 02-28-2022 End: 04-30-2022 Erythrocyte sedimentation rate SED RATE WESTERGREN Lab Routine Acute nonintractable headache, unspecified headache type Myalgia Expected: 02/28/2022, Expires: 04/30/2022 [facility] Work Phone: Comment on above: Expected: 02/28/2022 , Expires: 04/30/2022 Start: 01-10-2022 End: 03-12-2022 Bacteria identified in Wound by Culture WOUND CULTURE AND GRAM STAIN Microbiology Routine Rash Expected: 01/10/2022, Expires: 03/12/2022 [facility] Work Phone: Comment on above: Expected: 01/10/2022 , Expires: 03/12/2022 Start: 12-16-2021 FLU (#1) FLU (#1) [facility] Start: 12-16-2021 Influenza vaccination C [facility] Start: 07-07-2021 Adult depression screening assessment DEPRESSION SCREENING [facility] Start: 2020 MenACWY (1 - 2-dose series) MenACWY (1 - 2-dose series) [facility] Start: 2020 MenB (1 of 2 - MenB 2-Dose Series Bexsero) MenB (1 of 2 - MenB 2-Dose Series Bexsero) [facility] Start: 2020 MenB (1 of 2 - MenB 2-Dose Series) MenB (1 of 2 - MenB 2-Dose Series) [facility] Start: 2019 CHLAMYDIA SCREENING (<18) CHLAMYDIA SCREENING (<18) [facility] Start: 2019 GC (GONORRHEA) SCREENING (<18) GC (GONORRHEA) SCREENING (<18) [facility] Start: 2019 Hearing Screening Hearing Screening [facility] Start: 2019 Vision Screening Vision Screening [facility] Start: 2018 PEDS TO ADULT TRANSITION ANNUAL ASSESSMENT PEDS TO ADULT TRANSITION ANNUAL ASSESSMENT [facility] Start: 2016 PEDS TO ADULT TRANSITION INITIAL DISCUSSION PEDS TO ADULT TRANSITION INITIAL DISCUSSION [facility] Start: 2015 HPV (1 - 2-dose series) HPV (1 - 2-d ose series) [facility] Start: 2014 MENINGOCOCCAL B: Consider based on risk (1 of 2 - Risk Bexsero 2-dose series) MENINGOCOCCAL B: Consider based on risk (1 of 2 - Risk Bexsero 2-dose series) [facility] Start: 2011 Tetanus Diphtheria a nd Pertussis Vaccines (1 - Tdap) Tetanus Diphtheria and Pertussis Vaccines (1 - Tdap) [facility] Start: 04-21-2011 MMR (1 of 2 - Standa rd series) MMR (1 of 2 - Standard series) [facility] Start: 04-21-2011 Varicella (1 of 2 - 2-dose childhood series) Varicella (1 of 2 - 2-dose childhood series) [facility] Start: 2009 COVID-19 VACCINE (1) COVID-19 VACCIN E (1) [facility] Start: 2005 Hepatitis A (1 of 2 - 2-dose series) Hepatitis A (1 of 2 - 2-dose series) [facility] Start: 2004 COVID-19 (#1) COVID-19 (#1) [facility] Start: 2004 COVID-19 VACCINE (#1) COVID-19 VACCI NE (#1) [facility] Start: 2004 Polio (1 of 3 - 4-do se series) Polio (1 of 3 - 4-dose series) [facility] Start: 2004 Hepatitis B (1 of 3 - 3-dose series) Hepatitis B (1 of 3 - 3-dose series) [facility] End: 05-05-2022 [facility] Work Phone: Comment on above: 1 Occurrences starti ng 05/05/2022 until 05/05/2022 COVID & INFLUENZA A/ B & RSV PCR, ROUTINE COVID & INFLUENZA A/B & RSV PCR, ROUTINE Microbiology Routine Sore throat Ordered: 09/21/2024 [facility] Work Phone: Comment on above: Ordered: 09/21/2024 [facility] Immunizations Immunization Date Immunization Notes Care Provider Braulio [facility] 04-12-2023 influenza, injectabl e, quadrivalent, contains preservative Jose Alonzo APRN.CHAR CONVEYOR TENDER Work Phone: [facility] Work Phone: 04-12-2023 meningococcal B vacc ine, recombinant, OMV, adjuvanted Jose Alonzo APRN.CHAR CONVEYOR TENDER Work Phone: [facility] Work Phone: 04-12-2023 influenza virus vacc ine, unspecified formulation Jose Alonzo APRN.CHAR CONVEYOR TENDER Work Phone: [facility] 09-19-2022 meningococcal B vacc ine, recombinant, OMV, adjuvanted Isrrael Woodall MD Work Phone: [facility] 03-24-2022 influenza, injectabl e, quadrivalent, preservative free Tee Warner MD Work Phone: [facility] 07-07-2020 meningococcal polysaccharide (groups A, C, Y and W-135) diphtheria toxoid conjugate vaccine (MCV4P) Isrrael Woodall MD Work Phone: [facility] 03-14-2017 Human Papillomavirus 9-valent vaccine Isrrael Woodall MD Work Phone: [facility] 03-14-2017 influenza, injectabl e, quadrivalent, contains preservative Isrrael Woodall MD Work Phone: [facility] 02-08-2016 Human Papillomavirus 9-valent vaccine Isrrael Woodall MD Work Phone: [facility] 12-08-2015 Human Papillomavirus 9-valent vaccine Isrrael Woodall MD Work Phone: [facility] 12-08-2015 meningococcal polysaccharide (groups A, C, Y and W-135) diphtheria toxoid conjugate vaccine (MCV4P) Isrrael Woodall MD Work Phone: [facility] 12-08-2015 tetanus toxoid, redu chester diphtheria toxoid, and acellular pertussis vaccine, adsorbed Isrrael Woodall MD Work Phone: [facility] 03-24-2011 influenza virus vacc ine, live, attenuated, for intranasal use Isrrael Woodall MD Work Phone: [facility] 05-21-2009 diphtheria, tetanus toxoids and acellular pertussis vaccine Isrrael Woodall MD Work Phone: [facility] 05-21-2009 influenza virus vacc ine, unspecified formulation Isrrael Woodall MD Work Phone: [facility] 05-21-2009 measles, mumps and rubella virus vaccine Isrrael Woodall MD Work Phone: [facility] 05-21-2009 poliovirus vaccine, inactivated Isrrael Woodall MD Work Phone: [facility] 05-21-2009 varicella virus vaccine Isrrael Woodall MD Work Phone: [facility] 05-28-2007 hepatitis A vaccine, unspecified formulation Isrrael Woodall MD Work Phone: [facility] Work Phone: 11-20-2006 hepatitis A vaccine, unspecified formulation Isrrael Woodall MD Work Phone: [facility] Work Phone: 02-27-2006 influenza virus vacc ine, unspecified formulation Isrrael Woodall MD Work Phone: [facility] Work Phone: 07-21-2005 diphtheria, tetanus toxoids and acellular pertussis vaccine Isrrael Woodall MD Work Phone: [facility] Work Phone: 07-21-2005 haemophilus influenz ae type b vaccine, HbOC conjugate Isrrael Woodall MD Work Phone: [facility] Work Phone: 05-09-2005 measles, mumps and rubella virus vaccine Isrrael Woodall MD Work Phone: [facility] Work Phone: 05-09-2005 varicella virus vaccine Isrrael Woodall MD Work Phone: [facility] Work Phone: 2004 DTaP-hepatitis B and poliovirus vaccine Isrrael Woodall MD Work Phone: [facility] Work Phone: 2004 haemophilus influenz ae type b vaccine, HbOC conjugate Isrrael Woodall MD Work Phone: [facility] Work Phone: 2004 pneumococcal conjuga te vaccine, 7 valent Isrrael Woodall MD Work Phone: [facility] Work Phone: 2004 DTaP-hepatitis B and poliovirus vaccine Isrrael Woodall MD Work Phone: [facility] Work Phone: 2004 haemophilus influenz ae type b vaccine, HbOC conjugate Isrrael Woodall MD Work Phone: [facility] Work Phone: 2004 pneumococcal conjuga te vaccine, 7 valent Isrrael Woodall MD Work Phone: [facility] Work Phone: 2004 DTaP-hepatitis B and poliovirus vaccine Isrrael Woodall MD Work Phone: [facility] Work Phone: 2004 haemophilus influenz ae type b vaccine, HbOC conjugate Isrrael Woodall MD Work Phone: [facility] Work Phone: 2004 pneumococcal conjuga te vaccine, 7 valent Isrrael Woodall MD Work Phone: [facility] Work Phone: Payers Date Payer Category Payer Self-pay 2022 Unknown [id number] 2022 Unknown [id number] 2012 Unknown [facility] [id number] 2012-Present [address] [place] [address] [id number] 2012 Medicaid [employer] [id number] 2012-Present [phone] [address] [place] [address] Medicaid [id number] 2012 Medicaid [id number] 2004 Unknown [id number] 2004 Unknown [id number] 2004 Unknown [id number] 2004 Unknown [id number] 1980 Unknown [id number] 1980 Unknown [id number] 1980 Unknown [id number] 1980 Unknown [id number] 1980 Unknown [id number] Unknown [id number] Unknown [id number] Social History Date Type Detail Facility Start: 01-10-2022 End: 03-24-2022 Tobacco smoking status WVIS Never smoked tobacco [facility] Start: 07-19-2021 End: 06-12-2023 Alcohol intake Current non-drinker of alcohol (finding) [facility] Start: 2005 Sex Assigned At Female C [facility] Start: 07-09-2021 End: 02-28-2022 Exposure to SARS-CoV-2 (event) Not sure [facility] Work Phone: Start: 01-10-2022 End: 03-24-2022 Tobacco use and exposure Smokeless tobacco non-user [facility] Work Phone: Start: 03-02-2022 End: 05-05-2022 Alcohol intake Not Asked [facility] Start: 2004 Sex Assigned At Not on file A jyothi [facility] Start: 09-19-2022 History SDOH Alcohol Frequency 3 [facility] Start: 09-19-2022 History SDOH Alcohol Std Drinks 1 [facility] Start: 09-19-2022 History SDOH Social Connections Phone 5 [facility] Start: 09-19-2022 History SDOH Social Connections Get Together 4 [facility] Start: 09-19-2022 History SDOH Social Connections Temple 2 [facility] Start: 09-19-2022 History SDOH Social Connections Living 7 [facility] Start: 09-19-2022 End: 04-12-2023 History of Social function [facility] Start: 09-19-2022 End: 04-12-2023 Social connection and isolation panel [facility] Do you belong to any clubs or organizations such as yarsanism groups, unions, fraternal or athletic groups, or school groups? Yes [facility] Are you now , , , , never or living with a partner? Never [facility] How often to you hav e a drink containing alcohol? 2-4 times a month [facility] How many standard drinks containing alcohol do you have on a typical day? 1 or 2 [facility] How often do you hav e 6 or more drinks on 1 occasion? Never [facility] How hard is it for y ou to pay for the very basics like food, housing, medical care, and heating Somewhat hard [facility] Adult Depression Screening Assessment 0 [facility] Do you feel stress - tense, restless, nervous, or anxious, or unable to sleep at night because your mind is troubled all the time - these days [OSQ] Not at all [facility] (I/We) worried otoniel er (my/our) food would run out before (I/we) got money to buy more. Sometimes true [facility] The food that (I/we) bought just didn't last, and (I/we) didn't have money to get more. Never true [facility] In the past 12 month s, was there a time when you were not able to pay the mortgage or rent on time? No [facility] Start: 08-14-2019 Gender identity Identifies as female gender (finding) [facility] Start: 08-14-2019 Sexual orientation Heterosexual (karol contreras) [facility] NEGATED: Highlighted rowStart: ELIZABETHF History of tobacco use Passive smoker [facility] Functional Status Date Assessment Result Facility 08-20-2014 Are you deaf, or do you have serious difficulty hearing No 08/20/2014 2:43 PM EDT Priscilla Liang LPN No [facility] 08-20-2014 Are you blind, or do you have serious difficulty seeing, even when wearing glasses No 08/20/2014 2:43 PM EDT Priscilla Liang LPN No [facility] 08-20-2014 Do you have serious difficulty walking or climbing stairs No 08/20/2014 2:43 PM EDT Priscilla Liang LPN No [facility] 08-20-2014 Do you have difficul ty dressing or bathing No 08/20/2014 2:43 PM EDT Priscilla Liang LPN No [facility] Mental Status Date Assessment Result Facility 08-20-2014 Because of a physica l, mental, or emotional condition, do you have serious difficulty concentrating, remembering, or making decisions Yes 08/20/2014 2:43 PM EDT Priscilla Liang LPN Yes [facility] Clinical Notes 03-24-2011 to 09-21-2024 Edilberto Gutiérrez APRN.[facility] - 09/21/2024 9:35 AM EDTTelephone Encounter - William Chowdary MA - 11/21/2023 8:12 AM EDTTelephone Encounter - William Chowdary MA - 11/21/2023 8:12 AM EDT Note Date & Type Note Facility 09-21-2024 Note SARS-COV-2 (AGENT OF COVID-19) RNA: Not detected INFLUENZA A RNA: Not detected INFLUENZA B RNA: Not detected RESPIRATORY SYNCYTIAL VIRUS (RSV) RNA: Not detected [facility] Comment on above: Performed By: #### 9 [id number] #### [facility] CLIA [id number] [address] [place] [address] OF [facility] 09-21-2024 Note HNO ID: [id number] Author: EDILBERTO GUTIÉRREZ APRN.[employer] Service: ? Author Type: Nurse Practitioner Type: Progress Notes Filed: 09/21/2024 10:08 Note Text: This note was created using RobArt. Geronimo Uribe is a 19 year old female. HPI Patient presents today complaining of 6 days of congestion, body aches, fever, sore throat, and chills. She also notes a sense of pressure in her left ear . she feels as though symptoms are not improving. She notes that multiple friends have had similar symptoms. Review of Systems As above Objective BP 130/80 Pulse 82 Temp 36.5 ?C (97.7 ?F) Resp 20 Wt (!) 149.2 kg (328 lb 14.8 oz) LMP 05/22/2023 (Exact Date) SpO2 99% BMI 48.57 kg/m? Physical Exam Vitals and nursing note reviewed. Constitutional: General: She is not in acute distress. Appearance: Normal appearance. She is not ill-appearing. HENT: Head: Normocephalic. Right Ear: Tympanic membrane normal. Left Ear: Tympanic membrane normal. Mouth/Throat: Mouth: Mucous membranes are moist. Pharynx: No posterior oropharyngeal erythema. Eyes: Conjunctiva/sclera: Conjunctivae normal. Cardiovascular: Rate and Rhythm: Normal rate and regular rhythm. Pulmonary: Effort: Pulmonary effort is normal. Breath sounds: Normal breath sounds. Musculoskeletal: General: Normal range of motion. Cervical back: Normal range of motion. Skin: General: Skin is warm and dry. Neurological: General: No focal deficit present. Mental Status: She is alert. Psychiatric: Mood and Affect: Mood normal. Behavior: Behavior normal. Assessment and Plan ASSESSMENT/PLAN: 1. Sore throat - ICD9: 462, ICD10: J02.9 (primary diagnosis) - suspect viral - Rapid Strep negative in the office today -Patient did request to be tested for flu, COVID, RSV. Understands there is no treatment indicated due to length of symptoms - Discussed supportive care treatment with fluids, rest and analgesia. - The patient may also use OTC cough and cold meds as needed and warm salt water gargles, throat lozenges and/or OTC throat spray as needed. - Contagious dz precautions discussed - The patient should follow up in one week if symptoms persist or worsen - STREP A MOLECULAR (POC) - COVID AND INFLUENZA A/B AND RSV PCR, ROUTINE 2. Eustachian tube dysfunction, left - ICD9: 381.81, ICD10: H69.92 Patient will use her home Flonase and Zyrtec for eustachian tube dysfunction she will otherwise use ibuprofen or Tylenol, get plenty of rest and fluids, and follow-up with PCP. Edilberto Gutiérrez APRN.[employer] [facility] 09-21-2024 History of Presen t illness Narrative This note was created using RobArt. Subjective Tari Uribe is a 19 year old female. HPI Patient presents today complaining of 6 days of congestion, body aches, fever, sore throat, and chills. She also notes a sense of pressure in her left ear . she feels as though symptoms are not improving. She notes that multiple friends have had similar symptoms. Review of Systems As above Objective BP 130/80 Pulse 82 Temp 36.5 C (97.7 F) Resp 20 Wt (!) 149.2 kg (328 lb 14.8 oz) LMP 05/22/2023 (Exact Date) SpO2 99% BMI 48.57 kg/m Physical Exam Vitals and nursing note reviewed. Constitutional: General: She is not in acute distress. Appearance: Normal appearance. She is not ill-appearing. HENT: Head: Normocephalic. Right Ear: Tympanic membrane normal. Left Ear: Tympanic membrane normal. Mouth/Throat: Mouth: Mucous membranes are moist. Pharynx: No posterior oropharyngeal erythema. Eyes: Conjunctiva/sclera: Conjunctivae normal. Cardiovascular: Rate and Rhythm: Normal rate and regular rhythm. Pulmonary: Effort: Pulmonary effort is normal. Breath sounds: Normal breath sounds. Musculoskeletal: General: Normal range of motion. Cervical back: Normal range of motion. Skin: General: Skin is warm and dry. Neurological: General: No focal deficit present. Mental Status: She is alert. Psychiatric: Mood and Affect: Mood normal. Behavior: Behavior normal. Assessment and Plan ASSESSMENT/PLAN: 1. Sore throat - ICD9: 462, ICD10: J02.9 (primary diagnosis) - suspect viral - Rapid Strep negative in the office today -Patient did request to be tested for flu, COVID, RSV. Understands there is no treatment indicated due to length of symptoms - Discussed supportive care treatment with fluids, rest and analgesia. - The patient may also use OTC cough and cold meds as needed and warm salt water gargles, throat lozenges and/or OTC throat spray as needed. - Contagious dz precautions discussed - The patient should follow up in one week if symptoms persist or worsen - STREP A MOLECULAR (POC) - COVID & INFLUENZA A/B & RSV PCR, ROUTINE 2. Eustachian tube dysfunction, left - ICD9: 381.81, ICD10: H69.92 Patient will use her home Flonase and Zyrtec for eustachian tube dysfunction she will otherwise use ibuprofen or Tylenol, get plenty of rest and fluids, and follow-up with PCP. Edilberto Gutiérrez APRN.CNP documented in this encounter [facility] 11-21-2023 Telephone encounter Note Unable to reach by phone- [employer] message sent William Chowdary MA [facility] 11-21-2023 Miscellaneous Notes Unable to reach by phone- [employer] message sent William Chowdary MA Please let patient know her gonorrhea and chlamydia is negative. documented in this encounter [facility] 11-21-2023 Telephone encounter Note Please let patient know her gonorrhea and chlamydia is negative. [facility] 11-20-2023 Note HNO ID: [id number] Author: JOSE ALONZO APRN.[employer] T[employer] Service: ? Author Type: Nurse Practitioner Type: Progress Notes Filed: 11/20/2023 12:08 Note Text: Chief Complaint Patient presents with: Follow Up HPI Tari Uribe is a 18 year old female who presents here today for Above Complaints.. Patient presents for letter for an emotional support animal. Past medical history, appointments, medications, allergies reviewed. Previous Medical History PAST MEDICAL HISTORY No date: ADHD (attention deficit hyperactivity disorder) Comment: [facility]--Dr. Oakley 09/25/2017: Adjustment disorder with mixed anxiety and depressed mood No date: Arm fracture, left Comment: kindergarten No date: Depression Comment: and anxiety No date: PMH - PAST MEDICAL HISTORY OF Comment: recurrent ear infections Previous Surgical History PAST SURGICAL HISTORY 04/03/2006: TYMPANOSTOMY LOCAL/TOPICAL ANESTHESIA Comment: dr calvert Family History FAMILY HISTORY Problem Relation Age of Onset Heart Mother murmur Cancer Mother had cancerous polyp at age 10 year Diabetes Maternal Grandmother Heart Maternal Grandmother other (kidney) Maternal Grandmother had one removed Heart Father CHF, Stents x 2 Kidney Disease Father Diabetes Father type 2 Hypertension Father Hyperlipidemia Father other (gout) Father No Known Problems Brother No Known Problems Paternal Grandmother Dementia Paternal Grandfather Alzheimer's Disease Paternal Grandfather Patient Allergies ALLERGIES Allergen Reactions Cat Dander Swelling, Itching Current Medications Current Outpatient Medications on File Prior to Visit Medication Sig dexAMETHasone (DECADRON) 1 mg tablet Take the tablet at 11 pm and go for labs the next morning on fasting- labs to be drawn at 8 am sertraline (ZOLOFT) 100 mg tablet Take 1 tablet by mouth once daily. metFORMIN (GLUCOPHAGE) 500 mg tablet Take 1 tablet by mouth daily with breakfast. SUMAtriptan (IMITREX) 100 mg tablet Take 100 mg by mouth as needed. No current facility-administered medications on file prior to visit. Social History Social History Tobacco Use Smoking status: Never Smokeless tobacco: Never Vaping Use Vaping Use: Never used Substance Use Topics Alcohol use: No Drug use: Yes Types: Marijuana Comment: every other day, smokes and uses edibles Review of Symptoms REVIEW OF SYSTEMS SEE HPI EXAM: BP 125/70 Pulse (!) 57 Resp 14 Wt (!) 161 kg (355 lb) LMP 05/22/2023 (Exact Date) BMI 52.42 kg/m? General Appearance: Well appearing, alert, in no acute distress, well-hydrated, well nourished.. Health Maintenance List GC (Gonorrhea) Screening (18-) Never done Depression Screening Never done Anxiety Screening Never done Hepatitis C Screening Never done HIV Screening Never done Chlamydia Screening (18-) Never done Covid-19 Vaccine( - 2022- season) due on 04/12/2024 Influenza Vaccine(1) due on 12/17/2023 DTaP,Tdap,Td Vaccine(7 - Td or Tdap) due on 12/07/2025 Hepatitis B Vaccine Completed HPV Vaccine Completed Meningococcal Conjugate Vaccine Completed Meningococcal B Vaccine: Consider Based On Risk Completed ASSESSMENT/PLAN: 1. Prediabetes - ICD9: 790.29, ICD10: R73.03 - METFORMIN 500 MG TABLET 2. ALIZA (generalized anxiety disorder) - ICD9: 300.02, ICD10: F41.1 - SERTRALINE 100 MG TABLET 3. Screening for STD (sexually transmitted disease) - ICD9: V74.5, ICD10: Z11.3 - GONORRHEA/CHLAMYDIA NAAT Jose Alonzo, ELECT[employer] BE[employer] MACHINE WELDER SETTER.[facility] 11-20-2023 History of Presen t illness Narrative Chief Complaint Patient presents with: Follow Up HPI Tari Uribe is a 18 year old female who presents here today for Above Complaints.. Patient presents for letter for an emotional support animal. Past medical history, appointments, medications, allergies reviewed. Previous Medical History PAST MEDICAL HISTORY No date: ADHD (attention deficit hyperactivity disorder) Comment: [facility]--Dr. Oakley 09/25/2017: Adjustment disorder with mixed anxiety and depressed mood No date: Arm fracture, left Comment: kindergarten No date: Depression Comment: and anxiety No date: PMH - PAST MEDICAL HISTORY OF Comment: recurrent ear infections Previous Surgical History PAST SURGICAL HISTORY 04/03/2006: TYMPANOSTOMY LOCAL/TOPICAL ANESTHESIA Comment: dr calvert Family History FAMILY HISTORY Problem Relation Age of Onset Heart Mother murmur Cancer Mother had cancerous polyp at age 10 year Diabetes Maternal Grandmother Heart Maternal Grandmother other (kidney) Maternal Grandmother had one removed Heart Father CHF, Stents x 2 Kidney Disease Father Diabetes Father type 2 Hypertension Father Hyperlipidemia Father other (gout) Father No Known Problems Brother No Known Problems Paternal Grandmother Dementia Paternal Grandfather Alzheimer's Disease Paternal Grandfather Patient Allergies ALLERGIES Allergen Reactions Cat Dander Swelling, Itching Current Medications Current Outpatient Medications on File Prior to Visit Medication Sig dexAMETHasone (DECADRON) 1 mg tablet Take the tablet at 11 pm and go for labs the next morning on fasting- labs to be drawn at 8 am sertraline (ZOLOFT) 100 mg tablet Take 1 tablet by mouth once daily. metFORMIN (GLUCOPHAGE) 500 mg tablet Take 1 tablet by mouth daily with breakfast. SUMAtriptan (IMITREX) 100 mg tablet Take 100 mg by mouth as needed. No current facility-administered medications on file prior to visit. Social History Social History Tobacco Use Smoking status: Never Smokeless tobacco: Never Vaping Use Vaping Use: Never used Substance Use Topics Alcohol use: No Drug use: Yes Types: Marijuana Comment: every other day, smokes and uses edibles Review of Symptoms REVIEW OF SYSTEMS SEE HPI EXAM: BP 125/70 Pulse (!) 57 Resp 14 Wt (!) 161 kg (355 lb) LMP 05/22/2023 (Exact Date) BMI 52.42 kg/m General Appearance: Well appearing, alert, in no acute distress, well-hydrated, well nourished.. Health Maintenance List GC (Gonorrhea) Screening (18-24) Never done Depression Screening Never done Anxiety Screening Never done Hepatitis C Screening Never done HIV Screening Never done Chlamydia Screening (18-24) Never done Covid-19 Vaccine( - 2022- season) due on 04/12/2024 Influenza Vaccine(1) due on 12/17/2023 DTaP,Tdap,Td Vaccine(7 - Td or Tdap) due on 12/07/2025 Hepatitis B Vaccine Completed HPV Vaccine Completed Meningococcal Conjugate Vaccine Completed Meningococcal B Vaccine: Consider Based On Risk Completed ASSESSMENT/PLAN: 1. Prediabetes - ICD9: 790.29, ICD10: R73.03 - METFORMIN 500 MG TABLET 2. ALIZA (generalized anxiety disorder) - ICD9: 300.02, ICD10: F41.1 - SERTRALINE 100 MG TABLET 3. Screening for STD (sexually transmitted disease) - ICD9: V74.5, ICD10: Z11.3 - GONORRHEA/CHLAMYDIA NAAT Jose Alonzo, ELECT[employer] BE[employer] MACHINE WELDER SETTER.[employer]END[employer] documented in this encounter [facility] 07-18-2023 History of Presen t illness Narrative Chief Complaint Patient presents with: Follow Up HPI Tari Uribe is a 18 year old female who presents here today for Above Complaints.. Patient presents to discuss medications. Patient is wanting to stop her methylphenidate due to insomnia. Needs refills of sertraline, states she has felt an improvement but still not feeling great. Past medical history, appointments, medications, allergies reviewed. Previous Medical History PAST MEDICAL HISTORY Diagnosis Date ADHD (attention deficit hyperactivity disorder) [facility]--Dr. Okaley Adjustment disorder with mixed anxiety and depressed mood 09/25/2017 Arm fracture, left kindergarten Depression and anxiety PMH - PAST MEDICAL HISTORY OF recurrent ear infections Previous Surgical History PAST SURGICAL HISTORY Procedure Laterality Date TYMPANOSTOMY LOCAL/TOPICAL ANESTHESIA 04/03/2006 dr calvert Family History FAMILY HISTORY Problem Relation Age of Onset Heart Mother murmur Cancer Mother had cancerous polyp at age 10 year Diabetes Maternal Grandmother Heart Maternal Grandmother other (kidney) Maternal Grandmother had one removed Heart Father CHF, Stents x 2 Kidney Disease Father Diabetes Father type 2 Hypertension Father Hyperlipidemia Father other (gout) Father No Known Problems Brother No Known Problems Paternal Grandmother Dementia Paternal Grandfather Alzheimer's Disease Paternal Grandfather Patient Allergies ALLERGIES Allergen Reactions Cat Dander Swelling, Itching Current Medications Current Outpatient Medications on File Prior to Visit Medication Sig metFORMIN (GLUCOPHAGE) 500 mg tablet Take 1 tablet by mouth daily with breakfast. sertraline (ZOLOFT) 50 mg tablet Take 1 tablet by mouth once daily. SUMAtriptan (IMITREX) 100 mg tablet Take 100 mg by mouth as needed. methylphenidate ER (CONCERTA) 18 mg biphasic tablet Take 1 tablet by mouth once daily for 30 days. No current facility-administered medications on file prior to visit. Social History Social History Tobacco Use Smoking status: Never Smokeless tobacco: Never Vaping Use Vaping Use: Never used Substance Use Topics Alcohol use: No Drug use: Yes Types: Marijuana Comment: every other day, smokes and uses edibles Review of Symptoms REVIEW OF SYSTEMS SEE HPI EXAM: BP 130/82 Pulse 84 Resp 16 Wt (!) 162.8 kg (359 lb) LMP 05/22/2023 (Exact Date) BMI 53.02 kg/m General Appearance: Well appearing, alert, in no acute distress, well-hydrated, well nourished.. Lungs: Lungs clear to auscultation. No wheezing, rhonchi, rales.. Heart: RRR without murmur, gallop, or rubs. No ectopy. Health Maintenance List GC (Gonorrhea) Screening (18-24) Never done Hepatitis C Screening Never done HIV Screening Never done Chlamydia Screening (18-) Never done Depression Assessment due on 04/17/2023 Covid-19 Vaccine(2022- season) due on 04/12/2024 DTaP,Tdap,Td Vaccine(7 - Td or Tdap) due on 12/07/2025 Hepatitis B Vaccine Completed HPV Vaccine Completed Influenza Vaccine Completed Meningococcal Conjugate Vaccine Completed Meningococcal B Vaccine: Consider Based On Risk Completed ASSESSMENT/PLAN: 1. ADHD (attention deficit hyperactivity disorder), combined type - ICD9: 314.01, ICD10: F90.2 (primary diagnosis) -Patient wants to stop methylphenidate. Does not want to try anything else at this time. 2. ALIZA (generalized anxiety disorder) - ICD9: 300.02, ICD10: F41.1 - SERTRALINE 100 MG TABLET Jose Alonzo APRN.[employer]OR TENDER documented in this encounter [facility] 10-28-2022 Miscellaneous Notes Patient notified, voiced understanding. Does have an appt scheduled with JUAN lopes in Jan as well Nadine Gutierrez RN Message left to call the office. Attempted to call both numbers listed. Patient does have an appointment scheduled 04/12 with Jose Alonzo to [facility]. Calista Ramey Ma Attempted to call, unable to leave message. Fazal Romero RN Dr. Healy's response below was that she did not have capacity for her. I can start metformin if they want and then have follow up with [facility] endo or adult primary care 500 mg daily x 1 week then 500 mg bid if no side effects. patient is scheduled with endo in [facility], 01/2023, is still awaiting call back from Dr. Healy's office, will take that if sooner. Is moving [facility] [place], so pharmacy for now is [facility]. Metformin or await endo appt? Spoke to pt mother - they just got back from vacation early this morning. We have pt scheduled with adult PCP - pt will call back herself later today she said to make sure it works with her schedule and to schedule the consult to endo. Thank you, Jill Message left for patient to call office Hugo Gill RN Left message to call our office. Fazal Romero RN please call the patient/patient's family I can start Metformin if they like but she may be better served by adult primary care who manages these medications more often. Would she like help with that transition? Please confirm pharmacy information. Call received from nurse from [facility]. States their office is full currently and only accepting a limited amount of patients. The nurse said Dr. Layla Healy recommends the following, States patient has obesity and fasting glucose 1 point too high. Recommends dietary counseling and to monitor A1c quarterly,if elevated would recommend starting with metformin or glp1 meds. Unless planning on , they do not need to see her. Please review/advise Nadine Gutierrez RN documented in this encounter [facility] 10-04-2022 History of Presen t illness Narrative 17yo female- borderline IFGprediabetes based on baseline. A1c was 6% in Mar 2022. Also note severe obesity with BMI 52. Given age recommend referral to adult endo and adult bariatric services. No medications need to be started before assessment Component Latest Ref Rng & Units 10/03/2022 Glucose 0 hr 74 - 99 mg/dL 100 (H) Glucose 1 hr See Comment mg/dL 163 Glucose 2 hr 74 - 139 mg/dL 130 documented in this encounter [facility] 09-19-2022 Instructions Isrrael Woodall MD - 09/19/2022 12:34 PM EDT Images from the original note were not included. 5 to Go!TM Healthy Kids Inside & Out 5 Eat FIVE fruits and veggies a day 4 Give and get FOUR compliments a day 3 Consume THREE calcium products a day 2 Limit media time to TWO hours a day 1 Get at least ONE hour of exercise a day 0 Consume ZERO sugar-sweetened drinks Go! Be healthy, inside and out! www.[facility].org/5toGo Adolescent to Adult Transition Program [facility] cares about helping you and each of our adolescents and young adults make a smooth transition to adult care. If your current doctor is a centerless grinder, we will work with you to decide the correct age for moving your care to a doctor or other provider who takes care of adults. We suggest that this move take place before age 22. Our office policy is to prepare you to move to a doctor or other provider who takes care of adults. This includes helping you find a doctor or other provider, sending medical records, and talking about any special needs with the new doctor or other provider. If your current doctor is in family medicine, [facility] will prepare you and your family for the transition to being an adult patient. You will be able to make your own healthcare decisions and will have an adult care team that meets your personal healthcare needs. At age 18, by law, we need your agreement to discuss personal health information with your family. We understand and respect that you may want to include your family in healthcare choices and will partner with you on how and when to include your family in decisions. We will make sure you know what changes to expect. We will also strive to make sure that all care team providers know your needs. We will help you find community resources and specialty care, if needed. Having your information before you come for the first time helps us be sure we do not miss any details. If joining our practice from outside [facility], we will help you request your medical record from past doctor(s) before your first visit. We will make every effort to work with your past providers to ensure a smooth transition and experience. We are always here for you. If you have any questions or concerns, please contact your primary care team or e-mail [email or web address] Got Transition is the federally funded national resource center on health care transition (HCT). Its aim is to improve transition from pediatric to adult health care through the use of evidence-driven strategies for health foster care worker, youth, young adults, and their families. www.gottransition.org [email or web address]://[email or web address].[email or web address] [email or web address]/?[email or web address]-[email or web address] documented in this encounter [facility] 09-19-2022 History of Presen t illness Narrative WELL VISIT PEDIATRIC 18+ YRS OLD Tari is a 17 year old who presents today for well exam. SUBJECTIVE CONCERNS: Discuss lab-work ; college immunizations. Pt has list on phone. Immunizations - She wanted to make sure she has received all the immunizations her university requires. She would like to receive the meningitis B vaccine. h/o elevated Hgb A1C - Endocrinology ordered a glucose tolerance test for further evaluation. Patient and mom tried to get test scheduled but test was never done due to scheduling conflicts. She has not scheduled any follow up appointment with endocrinology. knee pain x 2 weeks, intermittent, no clear trigger - Patient started feeling bilateral knee pain similar to what she experienced last year in February. She was evaluated by rheumatology at [facility] and it was concluded that the pain is likely due to a functional issue. She describes her current pain as aching and throbbing. She has tried using a knee brace which has been ineffective for her. She has taken Ibuprofen 600mg three to two times a day as needed for the pain. She says there was one week where she took it every day and one week where she didn't take it at all. The pain is worse with sitting for long periods of time and laying down to go to bed. Sometimes she wakes up at night due to the pain. She denies any history of injury. Anxiety - Not currently an issue for her ADHD - Still has symptoms but does not take medication. She is able to do well in school without taking medication. HISTORY ACTIVE PROBLEM LIST Body Mass Index Equal to Or Greater Than 95th Percentile for Age in Pediatric Patient - 09/14/2018 PAST MEDICAL HISTORY Diagnosis Date ADHD (attention deficit hyperactivity disorder) [facility]--Dr. Oakley Adjustment disorder with mixed anxiety and depressed mood 09/25/2017 Arm fracture, left kindergarten Depression and anxiety PMH - PAST MEDICAL HISTORY OF recurrent ear infections PAST SURGICAL HISTORY Procedure Laterality Date TYMPANOSTOMY LOCAL/TOPICAL ANESTHESIA 04/03/2006 dr calvert ALLERGIES Allergen Reactions Cat Dander Swelling, Itching Medications: SUMAtriptan (IMITREX) 100 mg tablet Take 1 tablet by mouth once daily as needed for migraine headache (see administration instructions) (May repeat dose in 2 hours if needed). (Patient not taking: Reported on 09/19/2022) FAMILY HISTORY Problem Relation Age of Onset Heart Mother murmur Cancer Mother had cancerous polyp at age 10 year Diabetes Maternal Grandmother Heart Maternal Grandmother other (kidney) Maternal Grandmother had one removed Heart Father CHF, Stents x 2 Kidney Disease Father Diabetes Father type 2 Hypertension Father Hyperlipidemia Father other (gout) Father No Known Problems Brother No Known Problems Paternal Grandmother Dementia Paternal Grandfather Alzheimer's Disease Paternal Grandfather Social History Social History Narrative Not on file Smoking Exposure: Do you spend a significant amount of time with anyone who smokes? No School: Presently in College. No academic or school related concerns No behavioral concerns Any concerns regarding peer interactions? No Physical Activity more than 1 hour of physical activity per day Screen Time totaling more than 2 hours of screen time per day. Safety: Reviewed seat belts, bike helmets, and smoke detectors Diet: -Diet is well balanced and appropriate for age -Fruits and veggies are eaten with most meals -Regularly eats meals with family Elimination: no concerns, normal size and consistency Dental: dental care not current Sleep: -no sleep concerns Vision: No vision concerns Hearing: No hearing concerns Growth: No growth concerns Gynecological history: LMP: 08/30/22 Cycles are regular and last 5 days. Dysmenorrhea: severe Heavy periods: yes Substance use: none Sexual History: Attraction: both male and female Sexually Active: No Body image: satisfactory Screening tools reviewed and discussed with patient/[id number] and Social Determinants of Health. Please see Patient Entered Data. SDOH: Food Insecurity: Food Insecurity Present Worried About Running Out of Food in the Last Year: Sometimes true Ran Out of Food in the Last Year: Never true Financial Resource Strain: Medium Risk Difficulty of Paying Living Expenses: Somewhat hard Transportation Needs: No Transportation Needs Lack of Transportation (Medical): No Lack of Transportation (Non-Medical): No Housing Stability: Unknown Unable to Pay for Housing in the Last Year: No Number of Places Lived in the Last Year: Not on file Unstable Housing in the Last Year: No Discussed SDOH results with patient/family. SDOH needs identified: no concerns identified OBJECTIVE Physical Exam: BP 128/84 Pulse 102 Temp 36.1 C (97 F) (Temporal Artery) Resp 18 Ht 176.7 cm (5' 9.57) Wt (!) 162.4 kg (358 lb) LMP 08/30/2022 (Exact Date) BMI 52.01 kg/m Blood pressure percentiles are not available for patients who are 18 years or older. Blood pressure percentiles are not available for patients who are 18 years or older. >99 %ile (Z= 2.54) based on CDC (Girls, 2-20 Years) BMI-for-age based on BMI available as of 09/19/2022. Last BMI: Wt: 155 kg (341 lb 12.8 oz) (>99 %, Z= 2.85)* BMI: 50.48 kg/(m^2) Last 4 Encounter Wt Readings: Date: Wt: 09/19/2022 162.4 kg (358 lb) (>99 %, Z= 2.92)* 02/28/2022 155 kg (341 lb 12.8 oz) (>99 %, Z= 2.85)* 01/10/2022 152.9 kg (337 lb) (>99 %, Z= 2.83)* 07/19/2021 154.1 kg (339 lb 12.8 oz) (>99 %, Z= 2.84)* Last 4 Encounter Ht Readings: Date: Ht: 09/19/2022 176.7 cm (5' 9.57) (98 %, Z= 2.09)* 07/07/2020 175.3 cm (5' 9) (97 %, Z= 1.95)* 06/10/2019 175 cm (5' 8.9) (98 %, Z= 2.00)* 09/14/2018 175.5 cm (5' 9.09) (99 %, Z= 2.19)* General: Well developed, No acute distress, Obese Head: normocephalic Eyes: conjunctivae/corneas clear Ears: normal external ear and canal, tympanic membranes with normal landmarks Nose: no erythema or rhinorrhea Oropharynx: moist mucous membranes, no erythema or exudate Neck: supple, no adenopathy Spine: Back symmetric, no curvature. Resp: lungs clear to auscultation Abdomen: Soft, nontender, nondistended, no palpable organomegaly or masses, normal bowel sounds Extremities: Some pain on the lateral joint lines. No patellar apprehension. Manuel negative bilaterally Neuro: No focal deficits or abnormal findings present Skin: no rashes ASSESSMENT & PLAN: Encounter Diagnosis ICD-10-CM 1. Encounter for routine child health examination w/o abnormal findings Z00.129 2. Encounter for immunization Z23 MENINGOCOCCAL B VACCINE (BEXSERO) 3. Glucose intolerance E74.39 GLUC MADISON, 2-HR NON-GEST, 75 GM, FASTING 4. Chronic pain of both knees M25.561 SED RATE WESTERGREN M25.562 CONSULT TO PHYSICAL THERAPY G89.29 5. Body mass index equal to or greater than 95th percentile for age in pediatric patient Z68.54 >99 %ile (Z= 2.54) based on CDC (Girls, 2-20 Years) BMI-for-age based on BMI available as of 09/19/2022. Tari is elevated range (BMI greater than 95th%): -Discussed how healthy eating, minimizing electronics and getting physical activity impact physical and emotional health -Avoid eating out and encouraged family meals at home Depression Screening 09/19/2022 PHQ-2 Score 0 PHQ-9 Score 3 Depression screening tool completed and reviewed. Based on score and interview, patient is not at risk for depression. Screening tool discussed with patient, and I recommended no further intervention at this time. - Discussed diet and safety. - Dental care discussed. - Craigslist handout given (See Patient Instructions). - Patient was counseled [id number] by myself (the billing provider) for the following immunizations and vaccine components, including side effects: Men B. Patient consents for immunization and understands risks and benefits. A VIS sheet on each immunization was given to the patient. - Healthcare transition statement not discussed.. - Follow up in one year for routine physical. F/u plan endo 05/09 Fasting laboratory studies were requested: lipid profile, C-peptide, 75 gram OGTT. The need for intervention with medications Was to follow up 3 months They never got the OGTT- will order today and follow up based on results. Discussed nutrition. She did not find her last meeting with resource center teacher helpful. She already failed a weight management program locally. She is not sure it makes sense to reenroll now starting college in the fall Immunizations - Administer covid and menigitis B vaccine today Knee Pain - The knee pain is likely due to habitus and some laxity. PT referral was made. ESR was ordered because it was elevated at last [facility] visit but she had infection at that at time as well. Isrrael Woodall MD documented in this encounter [facility] 03-17-2022 Note New Patient Tari Uribe is here for consultation at the request of Oscar Cody for the diagnosis of migratory arthralgia Chief Complaint Patient presents with New Patient Visit Bilateral leg pain History of Presenting Problem Tari is a 16 year old female who presents today with a four week history of migrating polyarthralgia and myalgia. Tari reports that she began experiencing pain in her right knee four weeks ago. The pain would move to her right thigh then to her left ankle then up to her left hip, etc. She reports that the pain will migrate and not stay in the same place throughout the day from her bilateral hips to her ankles, including both muscle and joint and in both lower extremities. Around this time, she was also having severe headache accompanied by blurry vision. She was initially seen in the ED on 02/22 where (per PCP note on 02/28) CBC, CMP, HCG, UA, chest xray and flu testing were normal. She was seen by her PCP on 02/28 where labs were obtained and only remarkable for an elevated ESR. She was evaluated by Optometry the same day and there was no ocular pathology found (ruling out pseudotumor cerebri). Her leg pain became so severe that she presented to the [facility] ED on 03/02 after reporting excruciating pain that would migrate in her legs where she had difficulty ambulating and could not walk up and down the stairs without assistance. 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 Bilateral low extremity DVT ultrasound was performed and negative. She did not have any concerns for muscle weakness or joint effusion on exam. She was found to have serous effusions in her ears bilaterally as well as concern for breast abscesses in the right breast without fluctuance. She was discharged with referrals to Infectious Disease and Rheumatology. Initially, she was taking 800 mg of ibuprofen every 4 hours at home without ANY pain relief. Mom reports that given the amount of pain she was having, she gave her Tari's father's prednisone (she is unsure of what dose she gave) and she took a few days of this medicine along with trialing her mother's Flexeril medicine (5 mg). She reports that her symptoms improved to the point where the pain is no longer severe. She has not been taking either of these medicines for the past week and her pain has not worsened. She reports that she will still have migrating pain in her muscles and joints of her lower extremities but it is much more tolerable. Throughout all of this, she has not noted any persistent joint swelling. No morning stiffness. No pain in her upper extremities or back. She reports that the pain feels like a deep bruise when it is present. She denies having persistent pain in one location, just that it can migrate to any part of her lower legs. Of note, Tari has been experiencing sores around her breasts for the past several months accompanied by some drainage. She was first seen in an urgent care for these symptoms on 01/10/22. She was diagnosed with intertrigo but there was concern for secondary cellulitis so she was started on clotrimazole cream and doxycycline. 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 She was switched to clindamycin (5 day course) on 01/16 given little improvement. Tari reports that she continues to have sores on both breasts and has noticed one under her left breast that is new. More recently, her PCP started on her on amoxicillin twice daily. Tari admits that she does not like taking medications and has only been taking it on average once a day. No history of recurrent abscesses/infections as a child. No fevers throughout this whole time period or illnesses in the 1-2 months prior to symptom onset. No known cough or congestion. No vomiting or diarrhea. She does report that she was having active boils at the time that the labs were collected in February and thinks she may have had an ear infection. Mom is quite concerned about Lyme disease because she was bitten by a tick at the age of 7 in [place] and did not remove the tick properly. No oral/nasal ulcers, alopecia, persistent rashes (outside sores in breast area), hematuria. No numbness or tingling in her lower extremities. Past Medical History No medical problems No past surgical history Allergies: No Known Allergies Medications: Outpatient Encounter Medications as of 03/17/2022 Medication Sig Dispense Refill Magnesium Oxide 500 MG TABS Take 1 Tablet (500 mg) by mouth daily amoxicillin (AMOXIL) 875 MG tablet Take 1 tablet by mouth twice daily for 10 days. sertraline (ZOLOFT) 50 MG tablet Take 1 Tablet (50 mg) by mouth daily SUMAtriptan Succinate (IMITREX) 100 MG tablet Take 1 Tablet (100 mg) by mouth daily as needed cyclobenzaprine (FLEXERIL) 5 MG tablet Take 1 Tablet (5 mg) by mouth as needed Prescription on moms PREDNISON (more content not included)... [facility] 03-02-2022 Emergency department Note Patient discharged by resident. [facility] 03-02-2022 Emergency department Note Patient discharged by resident. Triage note: Presents awake, alert, ambulatory for bilateral LE pain x 2 weeks. Recent hospitalization at [facility] for migraine, states ever since I was there my legs have hurt. Blood work, imaging complete, elevated sed rate per mother. Now, fatigued appearing, reports difficulty sleeping, Excedrin utilized yesterday for pain. MSPs intact. Mother expresses frustration with they didn't do nothing at [facility]. They didn't even give her any medicines for the headaches, when asked about possibility of new medication causing symptoms. documented in this encounter [facility] 03-02-2022 Note PROCEDURE: TIBIA FIB WAYNE 2 VIEWS RIGHT CLINICAL HISTORY: msk leg pain COMPARISON: None. FINDINGS: There is no visible fracture. 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 IMPRESSION: Normal radiographic examination of the tibia and fibula. This report has been created using voice recognition software Signed by: Dr. Jean Wise at 03/02/2022 16:18 [facility] 03-02-2022 Note PROCEDURE: TIBIA FIB WAYNE 2 VIEWS LEFT CLINICAL HISTORY: msk leg pain COMPARISON: None. FINDINGS: There is no visible fracture or other osseous abnormality. The soft tissues are radiographically normal. IMPRESSION: Normal radiographic examination of the tibia and fibula. This report has been created using voice recognition software Signed by: Dr. Jean Wise at 03/02/2022 16:15 [facility] 03-02-2022 Note Is this a pre-proced ure screening test?->No Release to patient->[facility] 03-02-2022 Hospital Discharg e instructions Mostafiz, Arianna, MD - 03/02/2022 4:40 PM EST Use 600-800mg of ibuprofen (Motrin) every 6 hours for background pain. Use 1000 mg of Tylenol up to 4 times a day for breakthrough pain. Return for focal neurologic deficits and inability to walk. Please call general surgery (Dr. Metzger) at and Infectious Disease at for an appointment as soon as possible to address your breast abscess. A referral has been made to Rheumatology for leg pain. You may call them at to schedule an appointment. documented in this encounter [facility] 03-02-2022 Note PROCEDURE: TIBIA FIB WAYNE 2 VIEWS RIGHT CLINICAL HISTORY: msk leg pain COMPARISON: None. FINDINGS: There is no visible fracture. 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 [facility] 03-02-2022 Note PROCEDURE: TIBIA FIB WAYNE 2 VIEWS LEFT CLINICAL HISTORY: msk leg pain COMPARISON: None. FINDINGS: There is no visible fracture or other osseous abnormality. The soft tissues are radiographically normal. [facility] 03-02-2022 Miscellaneous Notes Mother aware and follow up scheduled. Fazal Romero RN I would like her to try a triptan medication in the event that this is due to migraine. I would also like to have her start magnesium which can help with both headache and muscle soreness. Please schedule a follow-up for Monday morning so that I may recheck and decide if further referrals are necessary. The following approved medication requests have been transmitted electronically. Requested Prescriptions Signed Prescriptions Disp Refills SUMAtriptan (IMITREX) 100 mg tablet 9 tablet 0 Sig: Take 1 tablet by mouth once daily as needed for migraine headache (see administration instructions) (May repeat dose in 2 hours if needed). Authorizing Provider: ISRRAEL WOODALL Magnesium Oxide 500 mg tab 30 tablet 0 Sig: Take 1 tablet by mouth once daily. Authorizing Provider: ISRRAEL WOODALL MD Still having pain in her knees, feels like someone is squeezing them. Is struggling to sleep and walk, would rate pain severe. Taking 800mg of Ibuprofen every 8 hours, not doing a whole lot The pain is effecting her sleeping as well. Has also had some headaches and blurred vision. Mother does report a family history of fibromyalgia on dads side. Fazal Romero RN please call the patient's family Labs are significant only for some inflammation without pointing towards a specific cause. How is she feeling now? documented in this encounter [facility] 03-02-2022 Emergency department Triage note Triage note: Presents awake, alert, ambulatory for bilateral LE pain x 2 weeks. Recent hospitalization at [facility] for migraine, states ever since I was there my legs have hurt. Blood work, imaging complete, elevated sed rate per mother. Now, fatigued appearing, reports difficulty sleeping, Excedrin utilized yesterday for pain. MSPs intact. Mother expresses frustration with they didn't do nothing at [facility]. They didn't even give her any medicines for the headaches, when asked about possibility of new medication causing symptoms. [facility] 03-02-2022 Reason for referr al (narrative) Specialty Diagnoses / Procedures Referred By Ankush rivera Referred To Contact Rheumatology Oscar Cody, [place] [address] Referral ID Status Reason Start Date Expiration Date V isits Requested Visits Authorized [id number] Open Specialty Services Required 03/02/2022 03/02/2023 1 1 * Referral (Routine) - Open Specialty Diagnoses / Procedures Referred By Ankush rivera Referred To Contact Infectious Diseases [place] [address] Referral ID Status Reason Start Date Expiration Date V isits Requested Visits Authorized [id number] Open Specialty Services Required 03/02/2022 03/02/2023 1 1 * Referral (Routine) - Open Specialty Diagnoses / Procedures Referred By Ankush rivera Referred To Contact Pediatric Surgery [place] [address] [place] [address] Referral ID Status Reason Start Date Expiration Date V isits Requested Visits Authorized [id number] Open Specialty Services Required 03/02/2022 03/02/2023 1 1 [facility]11-14-2022 Miscellaneous Notes* Telephone Encounter - Fazal Romero RN - 02/28/2022 4:34 PM EST Mother aware. * Telephone Encounter - Isrrael Woodall MD - 02/28/2022 4:21 PM EST please call the patient's family Retinal exam was normal today from optometry. I would like to get some screening labs to see if I can better explain her symptoms. She may come to the lab at her convenience. documented in this encounterOhio[facility] History of Present illness Narrative* Keila Roblero, PARI - 02/28/2022 4:02 PM EST 1. Headaches, migraine No ocular pathology found upon a dilated examination Healthy looking optic nerve with good perfusion -no swelling Best-correction vision: 20/20 both eyes Follow-up as needed with any new or worsening problems Keila Roblero, OD February 28, 2022 4:02 PM documented in this encounterOhiohealth [facility]11-14-2022 Instructions* Patient Instructions* Isrrael Woodall MD - 02/28/2022 2:23 PM EST 5 to Go!TM Healthy Kids Inside & Out 5 Eat FIVE fruits and veggies a day 4 Give and get FOUR compliments a day 3 Consume THREE calcium products a day 2 Limit media time to TWO hours a day 1 Get at least ONE hour of exercise a day 0 Consume ZERO sugar-sweetened drinks Go! Be healthy, inside and out! [email or web address] -When your child is sick, please call us. Our [facility] offices haveevening and weekend appointments. -[facility] also provides care to patients ages 2 y/o and older. -Nurse Glass Beveler is available 24 hours a day for advice and triage at [phone]. Where should I go for CARE? [email or web address] PRIMARY CARE -Contact your Primary Care Provider (PCP) if you have any new health concerns. They know your health history best. -Unless you are experiencing a life-threatening emergency, contact your primary care provider first. Most offices offer same day appointments See your PCP for wellness visits, sports physicals, to monitor chronic health conditions and for acute issues that do not require an emergency department visit. Keep any regular appointments that your PCP recommends. [facility] ONLINE (Patients ages 2 years and up) See a provider live within minutes from the comfort of your home (or work) using your smartphone, tablet or laptop. Allergies (seasonal) Asthma (adults only) Back strains and sprains (adults only) Bronchitis (adults only) Conjunctivitis (pink eye) Cold, cough & flu symptoms Minor farrell or cuts Painful urination and urinary tract infections (adults only) Rashes Sinus infections Upper respiratory illness Vaginal symptoms (itching, discharge) Minor injuries -Low-cost, [id number] option (insurance may cover) [facility] (Patients ages 2 years and up) When you should head to Express Care Cold, cough & flu symptoms Sinus infection Earache Sore throat Conjunctivitis (pink eye) Skin rashes (poison hue, ringworm, shingles, scabies, impetigo) Minor aches and pains (without serious injury) Headaches Blood pressure checks Urinary tract infections Sexually transmitted infections Nausea, vomiting Diarrhea Minor injuries (sprains, strains, minor joint pain) Insect bites & stings (including tick bites) Minor farrell Skin injuries not requiring stitches Sports physicals -[facility] is not the right choice for wounds needing stitches or excessive bleeding! -Lower-cost option (most insurances are accepted) URGENT CARE (Patients ages 6 months and up) When you should to Urgent Care For any of the 17 types of conditions treated by our [facility] (see panel above), plus: Imaging Stitches EKGs -Physician staffed or configuration developer 07/11 -Higher [id number] cost (most insurances are accepted) EMERGENCY DEPARTMENT When you need to go to the Emergency Department Accidents (falls, car crashes) Chest pain Coughing up or vomiting blood Drug overdose Prolonged high fever (not relieved by medication) Head injury Injuries caused by violence & major trauma Life-threatening conditions Loss of consciousness Poisoning Severe, persistent abdominal pain Severe farrell Severe headache Shortness of breath Stroke symptoms (facial drooping, arm weakness, speech difficulties) Suicidal feelings Uncontrolled or excessive bleeding -The emergency department is a busy place! Longer wait times are common, If your condition isn't life-threatening, know that your insurance company could deny payment. Consider Express Care or call your primary care physician's office and ask for a same-day appointment. -In an emergency, call 911 or go to the nearest emergency department. -Highest ern-or-syadyj cost [facility] (Patients ages to 18 years) Location: [facility] at [address] [place], [place] [address] Hours: Monday-Monday from 1pm-5pm (excluding holidays) [email or web address] The [facility] is designed to provide parents with quick access to medical care for common health problems for children. When your child is sick with a cold or has an ear infection, youcan get walk in convenience and the treatment your child needs as soon as possible from board certified physicians, nurse practitioners and physicians assistants. -No appointment is necessary. -Patients will check in on first floor upon arrival We see for the following medical conditions: Allergies Cough, Cold or Flu Symptoms Constipation Earache Fever Insect Bites and Stings Minor aches and pains Minor farrell Minor injuries (sprains and strains) Nausea, vomiting Diarrhea [place] eye Rash Sexually Transmitted Infections Sinus Infection Skin Injuries not requiring stitches Skin infections (cellulitis) Sore throat Urinary Tract Infections Wheezing without breathing difficulty documented in this encounterOhio[facility]11-14-2022 History of Present illness Narrative* Isrrael Woodall MD - 02/28/2022 2:01 PM EST PEDIATRIC EMERGENCY ROOM FOLLOW UP VISIT SERVICE DATE: 02/28/2022 Tari Uribe is a 16 year old female who was seen in the emergency room for headache, history of blurred vision, dizziness and lightheadedness. Accompanied by her mother. History was obtained from: mother, patient, and paper chart Chart reviewed and course discussed with patient and mother. Illness/ER course: Patient was given IV fluids. Work-up in the emergency room was negative. She felt better as time progressed in the emergency room. They advised her to increase fluid intake and follow-up as needed. Pertinent lab/radiology tests: CBC, CMP, hCG, UA, chest x-ray COVID, influenza were all normal. Most troublesome sx is leg pain- now bilat. started on the right and now involving the left. She describes it as having a bruise on the inside. She does feel she is somewhat weaker due to the pain. no numbness trouble with sleep due to pain excedrin, ibuprofen have not helped over last 5 days worsening no n/v also feels SOB, chest pain and weakness Fussiness: yes Fever: no Headache: yes -continuous right sided headache. She no longer has blurred vision. Headache does notget relief with sleeping Ear pain/pulling: no Nasal congestion: no Sore throat: no Cough: yes-dry Abdominal pain: no Nausea: no Emesis: no Diarrhea: no Rash: no HISTORY PAST MEDICAL HISTORY Diagnosis Date ADHD (attention deficit hyperactivity disorder) [facility]--Dr. Oakley Arm fracture, left kindergarten Depression and anxiety PMH - PAST MEDICAL HISTORY OF recurrent ear infections ALLERGIES Allergen Reactions Cat Dander Swelling, Itching Medications reviewed. Changes to highlight include NA Medications: methylphenidate ER 36 mg tablet Take 36 mg by mouth once daily. 2 tabs once daily SUMAtriptan (IMITREX) 100 mg tablet Take 1 tablet by mouth once daily as needed for migraine headache (see administration instructions) (May repeat dose in 2 hours if needed). Magnesium Oxide 500 mg tab Take 1 tablet by mouth once daily. amoxicillin (AMOXIL) 875 mg tablet Take 1 tablet by mouth twice daily for 10 days. lactobacillus rhamnosus (CULTURELLE) 10 billion cell capsule Take 1 capsule by mouth once daily. sertraline (ZOLOFT) 50 mg tablet Take 50 mg by mouth once daily. REVIEW OF SYSTEMS GENERAL: No fevers or irritability. HEENT: Negative for significant ear problems or hearing loss, nasal discharge, or nose bleeds, sorethroat, difficulty swallowing, mouth lesions, hoarseness NECK: Negative for stiffness, lumps or significant neck swelling RESPIRATORY: Negative for cough, wheezing or respiratory distress CARDIOVASCULAR: Negative for leg swelling and palpitations GI: Negative for blood in stools or black stools, change in bowel habit, diarrhea, heart burn MUSCULOSKELETAL: joint pain without swelling ENDOCRINE: Negative for significant weight loss or weight gain. Also notes , sore on Right breast x 1 day. She reports that this did come to ahead and drained earlier today. Prior culture of a similar lesion grew Actinomyces turicensis in the end of December. This is an unusual finding with a cutaneous infection. OBJECTIVE Physical Exam: BP 124/82 Pulse 108 Temp 37.3 C (99.2 F) (Temporal Artery) Resp 16 Wt (!) 155 kg (341 lb 12.8 oz) LMP 07/05/2020 (Exact Date) General: Well developed, No acute distress Eyes: clear, no drainage, PERRL, EOMI Ears: TMs translucent: bilaterally Nose: no erythema or exudate OP: no lesions, moist mucous membranes, normal tonsils Neck: supple and no adenopathy Lungs: clear to auscultation bilaterally, good air exchange, no retractions CVS: Normal rate, regular rhythm, no murmur Abdomen: Soft, nontender, nondistended, no palpable organomegaly or masses, normal bowel sounds Musculoskeletal: Tenderness of bilateral lower extremities without erythema, edema or warmth. neuro: Normal strength. Lower extremity deep tendon reflexes are normal and symmetric, no focal deficits Skin: Erythematous papule without induration or fluctuance on the right breast. Assessment/Plan: Encounter Diagnosis ICD-10-CM 1. Intractable headache, unspecified chronicity pattern, unspecified headache type R51.9 2. Blurred vision H53.8 3. Pain in both lower extremities M79.604 M79.605 4. Dizziness R42 5. Skin infection L08.9 6. BMI (body mass index), pediatric, greater than 99% for age Z68.54 I will arrange for her to have a funduscopic exam today as symptoms could be consistent with pseudotumor cerebri. I will determine further laboratory evaluation after that exam. Given her recent skin infection and the culture results I will treat with amoxicillin for the brestinfection. There is not fluctuance to obtain a culture today. SIGNATURE: Isrrael Woodall MD PATIENT NAME: Tari Uribe DATE: February 28, 2022 TIME: 2:23 PM documented in this encounterOhiohealth [facility]11-14-2022 History of Present illness Narrative* Jose Almeida APRN.CNP - 02/28/2022 10:30 AM EST Nontoxic-appearing female presents urgent care accompanied by by caregiver. Chief complaint headaches and body aches. Patient states was seen in emergency room last Monday for migraine headache with blurred vision. States all imaging and test were negative. Presents today due to persistent migraine headache. Patient states this is interrupting her sleep and stable. With presenting symptoms I recommended patient be seen by PCP for ER follow-up. Scheduled appointment today 140 with primary care provider. Caregiver verbalized understand agrees with plan of care. Jose Almeida APRN.BEBETO documented in this encounterOhiohealth [facility]09-26-2022 History of Present illness Narrative* Sania Duval PA-C - 01/10/2022 11:09 AM EDT Images from the original note were not included. This note was created using [employer]. Subjective Tari Uribe is a 16 year old female. HPI Patient presents with a chief complaint of sores around her breasts. The left breast had a sore on it that seems to be healing. She notes over the past week she had a sore under the right breast thatis painful and the redness seems to be worsening around it. No fever. She has a history of getting infected hairs underneath of her armpits and boils in her groin area. Denies diagnosis of hidradenitis suppurativa. Denies known MRSA infection. No fever or chills. She has had some drainage out of the 1 under the right breast. Review of Systems Constitutional: Negative. HENT: Negative. Skin: Rash under right breast, spot on left breast All other systems reviewed and are negative. PAST MEDICAL HISTORY Diagnosis Date ADHD (attention deficit hyperactivity disorder) [facility]--Dr. Oakley Arm fracture, left kindergarten Depression and anxiety PMH - PAST MEDICAL HISTORY OF recurrent ear infections Current Outpatient Medications Medication Sig Dispense Refill sertraline (ZOLOFT) 50 mg tablet Take 50 mg by mouth once daily. methylphenidate ER 36 mg tablet Take 36 mg by mouth once daily. 2 tabs once daily doxycycline (VIBRA-TABS) 100 mg tablet Take 1 tablet by mouth twice daily for 7 days. 14 tablet 0 clotrimazole (LOTRIMIN, CLOTRIM) 1 % cream Apply to affected area twice daily for 14 days. 28 g 1 traZODone (DESYREL) 50 mg tablet 100 mg. (Patient not taking: Reported on 01/10/2022) No current facility-administered medications for this visit. PAST SURGICAL HISTORY Procedure Laterality Date TYMPANOSTOMY LOCAL/TOPICAL ANESTHESIA 04/03/2006 dr calvert FAMILY HISTORY Problem Relation Age of Onset Heart Mother murmur Cancer Mother had cancerous polyp at age 10 year Diabetes Maternal Grandmother Heart Maternal Grandmother other (kidney) Maternal Grandmother had one removed Heart Father CHF, Stents x 2 Kidney Disease Father Diabetes Father type 2 Hypertension Father Hyperlipidemia Father other (gout) Father No Known Problems Brother No Known Problems Paternal Grandmother Dementia Paternal Grandfather Alzheimer's Disease Paternal Grandfather Social History Tobacco Use Smoking status: Never Smokeless tobacco: Never Vaping Use Vaping Use: Never used Substance Use Topics Alcohol use: No Drug use: No Objective BP 126/82 Pulse 92 Temp 36.1 C (97 F) Resp 18 Wt (!) 152.9 kg (337 lb) LMP 07/05/2020 (Exact Date) SpO2 99% Physical Exam Vitals reviewed. Constitutional: Appearance: Normal appearance. HENT: Head: Normocephalic and atraumatic. Chest: Comments: Patient has healing scar tissue on the inner left breast area. No active infection noted.No tenderness. Underneath of the right breast patient has erythema and irritation and a central area that is indurated with some drainage. No abscess palpated. Skin: General: Skin is warm and dry. Neurological: Mental Status: She is alert. Assessment and Plan ASSESSMENT/PLAN: 1. Rash - ICD9: 782.1, ICD10: R21 Likely intertrigo however concern for secondary cellulitis as well so we will cover with clotrimazole cream and doxycycline. Wound culture sent. Discussed if worsening to be seen again. Follow-up with PCP otherwise. Mom and patient agreeable. - WOUND CULTURE AND GRAM STAIN Sania Duval PA-C documented in this encounterOhio[facility]04-04-2022 History of Present illness Narrative* Isrrael Woodall MD - 07/19/2021 2:41 PM EDT PEDIATRIC SICK VISIT SERVICE DATE: 07/19/2021 SUBJECTIVE: Tari Uribe is a 16 year old female accompanied by mother for evaluation of abdominal pain stool frequency having diarrhea or difficulty passing stool. Missing a lot of school (missing every other Monday) Monday night and Monday am is abd pain Started in Dec. FH: Mom IBS, polyps Dad : Lactose intolerance History was obtained from: mother Duration of Symptoms: months Severity of Symptoms: not improving Modifying factors attempted: None Parents suggested metamucil, veggies drinks 2 large water bottles daily Sick contacts: No known sick contacts. HISTORY: ACTIVE PROBLEM LIST Adjustment Disorder With Mixed Anxiety and Depressed Mood Body Mass Index Equal to Or Greater Than 95th Percentile for Age in Pediatric Patient PAST MEDICAL HISTORY Diagnosis Date ADHD (attention deficit hyperactivity disorder) [facility]--Dr. Oakley Arm fracture, left kindergarten Depression and anxiety PMH - PAST MEDICAL HISTORY OF recurrent ear infections PAST SURGICAL HISTORY Procedure Laterality Date TYMPANOSTOMY LOCAL/TOPICAL ANESTHESIA 04/03/2006 dr calvert Allergies: ALLERGIES Allergen Reactions Cat Dander Swelling, Itching Medications: sertraline (ZOLOFT) 50 mg tablet Take 50 mg by mouth once daily. traZODone (DESYREL) 50 mg tablet 100 mg. methylphenidate ER 36 mg tablet Take 36 mg by mouth once daily. 2 tabs once daily School- A's-B's- likes going to school [employer] on Seeing Dr. Blackwood- psych (ADHD) Still doing counseling Anxiety well controlled REVIEW OF SYSTEMS: GENERAL: Negative for fevers HEENT: Negative for congestion or rhinorrhea. RESPIRATORY: Negative for wheezing or respiratory distress GI: Positive for nausea, diarrhea, abdominal discomfort and constipation SKIN: Negative for lesions, rash, and itching. OBJECTIVE: BP 118/72 Pulse 88 Temp 36.1 C (97 F) (Temporal) Resp 16 Wt (!) 154.1 kg (339 lb 12.8 oz) LMP 07/05/2020 (Exact Date) General: alert and active in no apparent distress Eyes: conjunctiva clear Ears: TMs translucent: bilaterally Nose: no erythema or exudate OP: moist without lesions Neck: supple, no adenopathy Lungs: clear to auscultation bilaterally, good air exchange, no retractions CVS: Normal rate, regular rhythm, no murmur Abdomen: soft, nondistended, nontender, no hepatosplenomegaly or masses Skin: No rashes, lesions or skin changes ASSESSMENT/PLAN: Encounter Diagnosis ICD-10-CM 1. Constipation, unspecified constipation type K59.00 2. Diarrhea, unspecified type R19.7 3. Abdominal pain, unspecified abdominal location R10.9 Constellation of symptoms of abdominal pain with alternating constipation and diarrhea may very well be IBS. The timing of the symptoms occurring often starting the school day does suggest poorly controlled anxiety being a contributor. She does continue to follow with psychiatry. Diet is low in dietary fiber without current supplements or much consumption of vegetables. I would like to try a fiber supplement either as FiberCon or Benefiber on a regular basis for a month to see if symptoms improve. If symptoms are persistent despite adequate fluid and fiber intake then I would refer to GI for further evaluation. SIGNATURE: Isrrael Woodall MD PATIENT NAME: Tari Uribe DATE: July 19, 2021 TIME: 2:41 PM documented in this encounterOhiohealth [facility]04-04-2022 Instructions* Patient Instructions* Isrrael Woodall MD - 07/19/2021 2:41 PM EDT 5 to Go!TM Healthy Kids Inside & Out 5 Eat FIVE fruits and veggies a day 4 Give and get FOUR compliments a day 3 Consume THREE calcium products a day 2 Limit media time to TWO hours a day 1 Get at least ONE hour of exercise a day 0 Consume ZERO sugar-sweetened drinks Go! Be healthy, inside and out! [email or web address] documented in this encounterOhio[facility]06-[facility]-2018 History of Past illness Narrative* Problem Noted Date Resolved Date Adjustment disorder with mixed anxiety and depre ssed mood 09/25/2017 09/19/2022 Attention deficit hyperactiv ity disorder (ADHD), combined type 03/24/2011 06/10/2019 documented as of this encounter (statuses as of 09/19/2022) [facility] of Past illness Narrative* Problem Noted Date Resolved Date Adjustment disorder with mixed anxiety and depre ssed mood 09/25/2017 09/19/2022 Attention deficit hyperactiv ity disorder (ADHD), combined type 03/24/2011 06/10/2019 documented as of this encounter (statuses as of 10/04/2022) [facility] of [facility] illness Narrative* Problem Noted Date Diagnosed Date Resolved Date Adjustment disorder with mix ed anxiety and depressed mood 09/25/2017 09/19/2022 Attention deficit hyperactiv ity disorder (ADHD), combined type 03/24/2011 06/10/2019 documented as of this encounter (statuses as of 10/28/2022) [facility] of [facility] illness Narrative* Problem Noted Date Diagnosed Date Resolved Date Adjustment disorder with mix ed anxiety and depressed mood 09/25/2017 09/19/2022 Attention deficit hyperactiv ity disorder (ADHD), combined type 03/24/2011 06/10/2019 documented as of this encounter (statuses as of 07/18/2023) [facility] Narrative* Problem Noted Date Diagnosed Date Resolved Date Adjustment disorder with mix ed anxiety and depressed mood 09/25/2017 09/19/2022 Attention deficit hyperactiv ity disorder (ADHD), combined type 03/24/2011 06/10/2019 documented as of this encounter (statuses as of 07/20/2023) [facility] History of Past illness Narrative* Problem Noted Date Resolved Date Attention deficit hyperactiv ity disorder (ADHD), combined type 03/24/2011 06/10/2019 documented as of this encounter (statuses as of 07/20/2021) [facility] Narrative* Problem Noted Date Resolved Date Attention deficit hyperactiv ity disorder (ADHD), combined type 03/24/2011 06/10/2019 documented as of this encounter (statuses as of 01/10/2022) [facility] illness Narrative* Problem Noted Date Resolved Date Attention deficit hyperactiv ity disorder (ADHD), combined type 03/24/2011 06/10/2019 documented as of this encounter (statuses as of 02/28/2022) [facility] of [facility] illness Narrative* Problem Noted Date Resolved Date Attention deficit hyperactiv ity disorder (ADHD), combined type 03/24/2011 06/10/2019 documented as of this encounter (statuses as of 03/01/2022) [facility] of [facility] illness Narrative* Problem Noted Date Resolved Date Attention deficit hyperactiv ity disorder (ADHD), combined type 03/24/2011 06/10/2019 documented as of this encounter (statuses as of 03/02/2022) [facility] of Past illness Narrative* Problem Noted Date Resolved Date Attention deficit hyperactiv ity disorder (ADHD), combined type 03/24/2011 06/10/2019 documented as of this encounter (statuses as of 03/02/2022) [facility] note* Diagnosis Constipation, unspecified constipation type- Primary Diarrhea, unspecified type Abdominal pain, unspecified abdominal location documented in this encounter [facility] note* Diagnosis Rash- Primary Rash and other nonspecific skin eruption documented in this encounter [facility] note* Diagnosis Procedure not carried out- Primary Procedure not carried out for other reasons documented in this encounter [facility] note* Diagnosis Headaches, migraine- Primary documented in this encounter [facility] note* Diagnosis Acute nonintractable headache, unspecified headache type- Primary Myalgia Mylagia and myositis, unspecified documented in this encounter [facility] note* Diagnosis Intractable headache, unspecified chronicity pattern, unspecified headache type- Primary Blurred vision Other specified visual disturbances Pain in both lower extremities Dizziness Dizziness and giddiness Skin infection Unspecified local infection of skin and subcutaneous tissue BMI (body mass index), pediatric, greater than 99% for age Body Mass Index, pediatric, greater than or equal to 95th percentile for age documented in this encounter [facility] note* Diagnosis Migratory pain- Primary Generalized pain documented in this encounter [facility]* Diagnosis Elevated hemoglobin A1c Other abnormal blood chemistry Severe obesity (BMI >= 40) Morbid obesity Acanthosis nigricans Acquired acanthosis nigricans documented in this encounter [facility] note* Diagnosis Encounter for routine child health examination w/o abnormal findings- Primary Routine or child health check Encounter for immunization Need for other specified prophylactic vaccination against single bacterial disease Glucose intolerance Chronic pain of both knees Body mass index equal to or greater than 95th percentile for age in pediatric patient Body Mass Index, pediatric, greater than or equal to 95th percentile for age documented in this encounter [facility] note* Diagnosis Class 3 severe obesity with body mass index (BMI) of 50.0 to 59.9 in adult, unspecified obesity type, unspecified whether serious comorbidity present (HCC)- Primary documented in this encounter [facility] note* Diagnosis ADHD (attention deficit hyperactivity disorder), combined type- Primary Attention deficit disorder with hyperactivity ALIZA (generalized anxiety disorder) Generalized anxiety disorder documented in this encounter [facility] note* Diagnosis Hirsutism- Primary Glucose intolerance [facility] Diagnosis Prediabetes Other abnormal glucose [facility] Diagnosis Prediabetes Other abnormal glucose ALIZA (generalized anxiety disorder) Generalized anxiety disorder Screening for STD (sexually transmitted disease) Screening examination for venereal disease [facility] Diagnosis Sore throat- Primary Acute pharyngitis Eustachian tube dysfunction, left documented in this encounter [facility] Summary Purpose Family History No Family History Records FoundNo Family History Records FoundNo Family History Records FoundNo Family History Records Found Advance Directives No Advanced Directives Records FoundNo Advanced Directives Records FoundNo Advanced Directives Records FoundNo Advanced Directives Records Found Reason for Referral Specialty Diagnoses / Procedures Referred By Ankush t Referred To Contact [facility] Diagnoses Chronic pain of both knees Procedures CONSULT TO PHYSICAL THERAPY PHYSICAL THERAPY EVALUATION HIGH COMPLEX 45 MINS Isrrael Woodall MD [address] [place] [address] [facility] [place] [address] [place] [address] Referral ID Status Reason Start Date Expiration Date Visits Requested Visits Authorized [id number] Pending Review Auto-Generat ed Referral 09/19/2022 09/19/2023 1 1 Additional Source Comments Source Comments (unrecognize d section and content) In the event this informatio n is protected by the Federal Confidentiality of Alcohol and Drug Abuse Patient Records regulations: The Federal rules restrict any use of the information to criminally investigate or prosecute any alcohol or drug abuse patient.[facility] the event this information is protected by the Federal Confidentiality of Alcohol and Drug Abuse Patient Records regulations: The Federal rules restrict any use of the information to criminally investigate or prosecute any alcohol or drug abuse patient.[facility] the event this information is protected by the Federal Confidentiality of Alcohol and Drug Abuse Patient Records regulations: The Federal rules restrict any use of the information to criminally investigate or prosecute any alcohol or drug abuse patient.[facility] the event this information is protected by the Federal Confidentiality of Alcohol and Drug Abuse Patient Records regulations: The Federal rules restrict any use of the information to criminally investigate or prosecute any alcohol or drug abuse patient.[facility] the event this information is protected by the Federal Confidentiality of Alcohol and Drug Abuse Patient Records regulations: The Federal rules restrict any use of the information to criminally investigate or prosecute any alcohol or drug abuse patient.[facility] the event this information is protected by the Federal Confidentiality of Alcohol and Drug Abuse Patient Records regulations: The Federal rules restrict any use of the information to criminally investigate or prosecute any alcohol or drug abuse patient.[facility] the event this information is protected by the Federal Confidentiality of Alcohol and Drug Abuse Patient Records regulations: The Federal rules restrict any use of the information to criminally investigate or prosecute any alcohol or drug abuse patient.[facility] the event this information is protected by the Federal Confidentiality of Alcohol and Drug Abuse Patient Records regulations: The Federal rules restrict any use of the information to criminally investigate or prosecute any alcohol or drug abuse patient.[facility] the event this information is protected by the Federal Confidentiality of Alcohol and Drug Abuse Patient Records regulations: The Federal rules restrict any use of the information to criminally investigate or prosecute any alcohol or drug abuse patient.[facility] the event this information is protected by the Federal Confidentiality of Alcohol and Drug Abuse Patient Records regulations: The Federal rules restrict any use of the information to criminally investigate or prosecute any alcohol or drug abuse patient.[facility] the event this information is protected by the Federal Confidentiality of Alcohol and Drug Abuse Patient Records regulations: The Federal rules restrict any use of the information to criminally investigate or prosecute any alcohol or drug abuse patient.[facility] the event this information is protected by the Federal Confidentiality of Alcohol and Drug Abuse Patient Records regulations: The Federal rules restrict any use of the information to criminally investigate or prosecute any alcohol or drug abuse patient.[facility] the event this information is protected by the Federal Confidentiality of Alcohol and Drug Abuse Patient Records regulations: The Federal rules restrict any use of the information to criminally investigate or prosecute any alcohol or drug abuse patient.[facility] the event this information is protected by the Federal Confidentiality of Alcohol and Drug Abuse Patient Records regulations: The Federal rules restrict any use of the information to criminally investigate or prosecute any alcohol or drug abuse patient.[facility] the event this information is protected by the Federal Confidentiality of Alcohol and Drug Abuse Patient Records regulations: The Federal rules restrict any use of the information to criminally investigate or prosecute any alcohol or drug abuse patient.[facility] the event this information is protected by the Federal Confidentiality of Alcohol and Drug Abuse Patient Records regulations: The Federal rules restrict any use of the information to criminally investigate or prosecute any alcohol or drug abuse patient.[facility] Reason for Visit (unrecogniz ed section and content) Reason Comments Diarrhea with constipation, ? IBS Reason Comments Derm Problem sores around bilater al breast x 1 month Reason Comments Headaches Blurred Vision Both Eyes Reason Comments Results Reason Comments ED Follow-up Seen at [facility] ER on for TAVERAS, blurred vision. Pt states that after leaving ER, she has experienced continuous bilateral leg pain, TAVERAS has not resolved, blurred vision has resolved. Reason Comments Leg Pain Reason Comments Well Child 17 yr [facility] ; Discuss lab-work Reason Comments Endocrinology Reason Comments Follow Up Reason Comments Refill Request Reason Comments Cough Chest congestion, so re throat, body aches, chills , left ear pain, TAVERAS x 6 days Care Teams (unrecognized sec tion and content) Mechanism Assembler Relationship Specialty Start Date End Date Isrrael Woodall MD [address] [facility] [place] [address] PCP - General 11/18/08 Mechanism Assembler Relationship Specialty Start Date End Date Isrrael Woodall MD [address] [place] [address], [place] [address] PCP - General 11/18/08 Mechanism Assembler Relationship Specialty Start Date End Date Isrrael Woodall MD [address] [place] [address], [place] [id number] PCP - General 11/18/08 Mechanism Assembler Relationship Specialty Start Date End Date Isrrael Woodall MD [address] [place] [address], [place] [address] PCP - General 11/18/08 Mechanism Assembler Relationship Specialty Start Date End Date Isrrael Woodall MD [address] [place] [address], [place] [address] PCP - General 11/18/08 Mechanism Assembler Relationship Specialty Start Date End Date Isrrael Woodall MD [address] [place] [address], [place] [address] PCP - General 11/18/08 Mechanism Assembler Relationship Specialty Start Date End Date Isrrael Woodall MD [address] [place] [address], [place] [address] PCP - General 03/05/09 Mechanism Assembler Relationship Specialty Start Date End Date Isrrael Woodall MD [address] [place] [address], [place] [address] PCP - General 03/05/09 Mechanism Assembler Relationship Specialty Start Date End Date Isrrael Woodall MD [address] [place] [address], [place] [address] PCP - General 11/18/08 Mechanism Assembler Relationship Specialty Start Date End Date Isrrael Woodall MD [address] [place], [place] [phone] PCP - General 11/18/08 Mechanism Assembler Relationship Specialty Start Date End Date Isrrael Woodall MD [address] [place] [address] [phone] PCP - General 11/18/08 Mechanism Assembler Relationship Specialty Start Date End Date Jose Alonzo APRN.[employer]OR [employer]ER [address] [place] [address] [phone] PCP - General Family Medicine 04/12/23 Mechanism Assembler Relationship Specialty Start Date End Date Jose Alonzo APRN.[employer] [address] [place] [address] [phone] PCP - General Family Medicine 04/12/23 Mechanism Assembler Relationship Specialty Start Date End Date Jose Alonzo, [place].[employer]OR [employer]ER [address] [place] [address] [phone] PCP - General Family Medicine 04/12/23 Mechanism Assembler Relationship Specialty Start Date End Date Jose Alonzo APRN.[employer]OR [employer]ER [address] [place] [address] [phone] PCP - General Family Medicine 04/12/23 Scheduled Active and Recently Administ ered Medications (unrecognized section and content) Medication Order 02/28/2022 03/01/2022 03/02/2022 ketorolac (TORADOL) 30 MG/ML Injection 15 mg (COMPLETED) 15 mg, Intramuscular, ONCE, 1 dose, On Mon03/02/22 at 1600 1603 (Given - Provid er: Kavita Wong RN) INFORMATION SOURCE (unrecogn ized section and content) DATE CREATED AUTHOR 06/17/2022 [facility] DATE CREATED AUTHOR AUTHOR'S ORGANIZ ATION 01/01/2023 [facility] DATE CREATED AUTHOR AUTHOR'S ORGANIZ ATION 01/13/2024 [facility] DATE CREATED AUTHOR AUTHOR'S ORGANIZ ATION 09/22/2024 [facility] FOR RECORDS PERTAINING TO PATIENTS WHO ARE OR HAVE BEEN ENROLLED IN A CHEMICAL DEPENDENCY/SUBSTANCEABUSE PROGRAM, SOME INFORMATION MAY BE OMITTED. This clinical summary was aggregated from multiple sources. Caution should be exercised in using it in the provision of clinical care. This summary normalizes information from multiple sources, and as a consequence, information in this document may materially change the coding, format and clinical context of patient data. In addition, data may be omitted in some cases. CLINICAL DECISIONS SHOULD BE BASED ON THE PRIMARY CLINICAL RECORDS. [facility] [employer] [facility]. provides no warranty or guarantee of the accuracy or completeness of information in this document.
[2024-09-22] MEDS: Azithromycin 250 MG Tablet 500 MG PO (11:33)
[2024-09-22 11:35] VITALS: BP 155/99; PULSE 74; RESP 18; TEMP 36.7; O2SAT 98
== END 2024-09-22 11:35 | disposition home or self-care (01) ==
PROVIDERS: Emergency Provider Emergency Medicine; PCP Nurse Practitioner Family; Visit Provider Emergency Medicine
DX: J40 Bronchitis, not specified as acute or chronic (principal); F41.9 Anxiety disorder, unspecified; F32.A Depression, unspecified; Z79.899 Other long term (current) drug therapy
CPT/HCPCS: 71046; 99282